=== PATIENT | female | born 1940 | race Caucasian/White ===

== ENCOUNTER 2019-09-06 12:18 | Outpatient (CLI) | payer MEDICARE, SELFPAY ==
--- NOTE | ~2019-09-06 | US_ITS ---
EXAMINATION: US venous doppler [facility] EXAM DATE: 09/06/2019 13:10 INDICATION: Left leg pain. TECHNIQUE: Multiple grayscale, color flow and Doppler images of the left lower extremity deep venous system were obtained and reviewed. Comparison is made to prior examination from 02/04/2013. FINDINGS: The left common femoral, femoral and profunda veins demonstrate normal color flow, respirat ory variation, augmentation and compressibility. Compressibility, color flow confirmed within the le ft popliteal, posterior tibial, peroneal, and greater saphenous veins. IMPRESSION: 1. No left lower extremity deep venous thrombosis. Reviewed, dictated and finalized at location B. CAR REPAIRER
== END 2019-09-06 12:19 | disposition home or self-care (01) ==
PROVIDERS: PCP Internal Medicine; Visit Provider Nurse Practitioner
DX: M79.662 Pain in left lower leg (principal)
CPT/HCPCS: 93971

== ENCOUNTER 2020-06-12 10:05 | Outpatient (NON) | payer MEDICARE, SELFPAY ==
[2020-06-12 23:36] LABS: SARS-CoV-2 RNA PCR Negative
== END 2020-06-12 10:06 ==
PROVIDERS: Visit Provider Internal Medicine
DX: R68.89 Other general symptoms and signs (principal); Z20.828 Contact with and (suspected) exposure to other viral communicable diseases
CPT/HCPCS: 87635; C9803; U0003

== ENCOUNTER 2020-06-27 12:27 | Emergency (ER) | payer MEDICARE, SELFPAY ==
--- NOTE | ~2020-06-27 | XR_ITS ---
EXAMINATION: XR chest 2V 06/27/2020 13:39 INDICATION: Tachycardia PROCEDURE: 2 view chest COMPARISON: Comparison to multiple prior studies sequentially, with oldest reviewed study dated 02/04. FINDINGS: The lungs are clear. The cardiomediastinal silhouette is within normal limits. There are no pleural effusions. There is no pneumothorax suspected. There are surgical clips in the right jyothi st wall. IMPRESSION: 1: NO ACUTE CARDIOPULMONARY DISEASE. Reviewed, dictated and finalized at location A. TIONS SPECIALIST
[2020-06-27 13:10] VITALS: BP 138/71; PULSE 89; RESP 17; TEMP 36.8; O2SAT 98
[2020-06-27 13:14] VITALS: PULSE 88
--- NOTE | 2020-06-27 13:15 | ECG_ITS ---
Measurements Intervals [place] Rate: 81 P: NC: 0 QRS: 17 QRSD: 89 T: 39 QT: 355 QTc: 412 Interpretive Statements SINUS RHYTHM ATRIAL COUPLET AND FREQUENT ATRIAL PREMATURE COMPLEXES VOLTAGE CRITERIA FOR LVH CANNOT RULE OUT SEPTAL INFARCT, AGE INDETERMINATE BASELINE ARTIFACT- I, II, III, AVL, V5 ABNORMAL ECG Electronically Signed On 06-27-2020 13:32:00 RECREATION ENGINEER by Erich Garcia D.O.
--- NOTE | 2020-06-27 13:20 | ED.GENADULT ---
HPI - General Adult General Chief complaint: Weakness Stated complaint: abnormal ekg Time Seen by Provider: 06/27/20 13:09 Source: patient, family, RN notes reviewed and old records reviewed History of Present Illness HPI narrative: 80-year-old female presents to emergency department for tachycardia after being evaluated by her primary care provider today. The nurse practitioner evaluated her today, and noticed her heart rate was around 113. Patient was sent into the emergency department for further evaluation. Patient currently asymptomatic. No chest pain or shortness of breath. No abdominal pain. No nausea or vomiting. No lightheadedness or dizziness. Related Data Home Medications Medication Instructions Recorded Confirmed hydrocodone 5 mg-acetaminophen 325 1 tablet PO Q8H PRN 05/27/19 06/27/20 mg tablet triamcinolone acetonide 55 mcg 1 spray NASAL DAILY 05/27/19 06/27/20 nasal spray aerosol pseudoephedrine HCl 60 mg tablet 60 mg PO Q4-6H PRN 09/06/19 06/27/20 Allergies Allergy/AdvReac Type Severity Reaction Status Date / Time Heparin Analogues Allergy Mild bleeding Verified 06/27/20 11:48 PROCHLORPERAZINE EDISYLATE Allergy Mild SWELLING Uncoded 06/27/20 11:48 PROCHLORPERAZINE MALEATE Allergy Mild SWELLING Uncoded 06/27/20 11:48 Review of Systems Review of Systems: Narrative: CONSTITUTIONAL: Denies fever, chills, or sweats. EYES: Denies visual changes, redness, or discharge. ENT: Denies rhinorrhea, congestion, sore throat, or otalgia. CARDIOVASCULAR: Denies chest pain, palpitations, or edema. RESPIRATORY: Denies cough or dyspnea. GASTROINTESTINAL: Denies abdominal pain, nausea, vomiting, or diarrhea. GENITOURINARY: Denies dysuria or hematuria. SKIN: Denies rash or itching. MUSCULOSKELETAL: Denies back pain, joint pain, or myalgia. NEUROLOGIC: Denies headache, numbness, dizziness, or weakness. PSYCHIATRIC: Denies anxiety or depression. All systems reviewed & are unremarkable except as noted in HPI and below (ROS) [facility] Past Medical History Medical History Colon cancer screening Fatigue Pain of left calf Social History Social History Smoking status: Never smoker Gender identity (if verbalized by the patient): Female Exam Narrative: Exam Narrative: GENERAL: Well-appearing, well-nourished, and in no acute distress. HEAD: Normocephalic, atraumatic. EYES: PERRLA and EOMI. ENT: Nares clear, no rhinorrhea or epistaxis. Mucous membranes moist. NECK: Supple. CHEST: Clear to auscultation. No respiratory distress. HEART: Regular rate and rhythm. No murmur heard. Normal peripheral pulses. ABDOMEN: Soft, nontender, nondistended, normal active bowel sounds. EXTREMITIES: Normal range of motion. No edema. SKIN: Warm, dry, no rash. NEURO: No focal deficits. Alert and oriented x3. PSYCH: Normal mood and affect. Course Reevaluation(s) Reevaluation #1: 1600 -reevaluated patient, heart rate improved after fluid administration. UA unremarkable for urinary tract infection. Counseled patient to continue having regular checkups with her family doctor. Vital Signs Vital signs: Vital Signs Temperature 36.8 C 06/27/20 13:10 Pulse Rate 89 06/27/20 13:10 Respiratory Rate 17 06/27/20 13:10 Blood Pressure 138/71 06/27/20 13:10 Pulse Oximetry 98 06/27/20 13:10 Temperature 36.8 C 06/27/20 13:10 Pulse Rate 89 06/27/20 17:02 Respiratory Rate 16 06/27/20 17:02 Blood Pressure 143/73 H 06/27/20 17:02 Pulse Oximetry 100 06/27/20 17:02 Medical Decision Making Medical Records Medical records reviewed: Yes I reviewed the patient's medical records. Vital Signs Vital Signs: Vital Signs Temperature 36.8 C 06/27/20 13:10 Pulse Rate 89 06/27/20 13:10 Respiratory Rate 17 06/27/20 13:10 Blood Pressure 138/71 06/27/20 13:10 Pulse Oximetry 98 06/27/20 13:10 Tem
--- NOTE | 2020-06-27 13:32 | PC.NURSE ---
Pt to XRAY via stretcher.
[2020-06-27 13:56] LABS: Hematocrit 32.4 % (37.0-47.0); Hemoglobin 10.4 g/dL (12.0-15.0); Mean Corpuscular HGB Conc 32.1 g/dl (32-36); Mean Corpuscular Hemoglobin 26.1 pg (26-34); Mean Corpuscular Volume 81.4 fl (80-100); Mean Platelet Volume 9.3 fl (7.4-10.4); Platelet Count Result 358 k/mm3 (150-375); Red Blood Count 3.98 M/mm3 (4.2-5.4); Red Cell Distribution Width 14.9 % (11.5-14.5); White Blood Count 13.4 K/mm3 (4.5-10.0)
[2020-06-27 14:12] LABS: Anion Gap 9 mmol/L (8-16); Blood Urea Nitrogen 23 mg/dL (7-17); Calcium 9.3 mg/dL (8.4-10.2); Carbon Dioxide 27 mmol/L (22-30); Chloride 100 mmol/L (98-107); Estimated CRCL calculation 64 ml/min; Estimated Glomerular Filt Rate > 60; Glucose 92 mg/dL (65-105); Potassium 3.7 mmol/L (3.4-5.0); Sodium 136 mmol/L (137-145)
[2020-06-27 14:17] LABS: Band Neutrophils Percent 6 % (0-6); Eosinophils Absolute Manual 0.13 K/mm3 (0.02-0.5); Eosinophils Percent Manual 1 % (0-4); Monocytes Absolute Manual 1.07 K/mm3 (0.1-0.90); Monocytes Percent Manual 8 % (3-9); Neutrophils Percent Manual 76 % (46-73); Total Cells Counted 100
[2020-06-27 14:22] LABS: Platelet Estimate Adequate (Adequate)
[2020-06-27 14:23] LABS: Hypochromasia 2+ (NORMAL)
[2020-06-27 14:56] VITALS: BP 134/77; PULSE 97; RESP 13; O2SAT 99
[2020-06-27 15:23] LABS: Add Urine Microscopic? YES; Appearance Urine Clear (Clear); Bilirubin Urine Negative (Negative); Blood Urine Negative (Negative); Color Urine Yellow (Yellow); Glucose Urine UA Negative (Negative); Ketones Urine Negative (Negative); Leukocyte Esterase Ur Negative LEU/UL (Negative); Mucus Urine Few /lpf; Nitrate Urine Negative (Negative); Protein Urine Negative (Negative); RBC Urine 0-2 /hpf (0-2); Specific Grav Ur 1.027 (1.001-1.035); Squamous Epithelial Cell Urine Few /hpf (Few); WBC Urine 0-3 /hpf
[2020-06-27] MEDS: SODIUM CHLORIDE 0.9% IV 1,000 ML 999 ML IV CONT (15:28)
[2020-06-27 17:02] VITALS: BP 143/73; PULSE 89; RESP 16; O2SAT 100
== END 2020-06-27 17:04 | disposition home or self-care (01) ==
PROVIDERS: Emergency Provider Emergency Medicine; PCP Internal Medicine
DX: E86.0 Dehydration (principal)
CPT/HCPCS: 36415; 71046; 80048; 81001; 85025; 93005; 96360; 99283; J7030

== ENCOUNTER 2020-07-10 12:05 | Inpatient (IN) | payer MEDICARE, SELFPAY ==
[2020-07-10] VITALS (32 sets, daily range): BP systolic 104–135; BP diastolic 56–78; PULSE 63–103; RESP 13–29; TEMP 36.4–36.6; O2SAT 90–100; BMI 26.0
--- NOTE | ~2020-07-10 | CT_ITS ---
EXAMINATION: CTA chest abdomen pelvis EXAM DATE: 07/10/2020 13:22 INDICATION: Back pain, feels like going to pass out. TECHNIQUE: Spiral CT of the chest, abdomen and pelvis was performed following intravenous injection o f 100 mL Omnipaque 350. Axial, coronal and sagittal images were reviewed. Coronal maximum intensity pixel images of chest reviewed. Maximum intensity projection 3-D reconstructions of the aorta were c reated by the technologist on dedicated workstation. The dose-length product (DLP) for this examina tion was 881.19 mGy-cm. The exposure was tailored according to patient size (auto mA exposure contro l), and iterative reconstruction (ASIR) was used as additional dose reduction technique. Comparison i s made to prior examination from 12/15/2016 (CT chest). FINDINGS: AORTA: Normal in caliber and without dissection. Mild scattered arterial sclerotic disease. No eviden ce of pulmonary emboli. IVC filter. CHEST: There is 3 mm left upper lobe granuloma unchanged. Some dependent groundglass opacity probably atelectasis given distribution. There are no pleural or pericardial effusions. Tracheobronchial t ree is patent. There is no mediastinal, hilar or axillary lymphadenopathy. There is no pneumothor ax. Heart normal in size. No evidence of coronary arterial calcification. ABDOMEN PELVIS: There are numerous peripherally enhancing centrally low density lesions appearance mo st consistent with metastatic disease. There is portacaval lymph node which is centrally necrotic rosendo suring 3.3 x 2.0 cm. Several other smaller periportal metastatic lesions. There is cholelithiasis. Th ere is thickening of the gallbladder fundus, could be metastatic cancer or cholangiocarcinoma. Pancre as, adrenal glands are unremarkable. Spleen normal in size. Portal and splenic veins are patent. Kidneys enhance symmetrically. There is no hydronephrosis. T he uterus is not identified and has likely been surgically resected. There is a pessary. The bladder is unremarkable. There is mild scattered arteriosclerotic disease. The appendix is normal. The stomach and small bowel are unremarkable. There is expected amount of c olonic stool. There is moderate sigmoid colonic diverticulosis. There is no adjacent inflammatory ch geeta to suggest diverticulitis. No free intraperitoneal gas. There are no osteoblastic or osteolyt ic lesions identified. IMPRESSION: 1. Numerous liver metastatic lesions. Periportal and smaller retroperitoneal metastatic lymphadenopa thy. 2. Gallbladder fundal wall thickening, cholangiocarcinoma or metastatic. 3. Sigmoid colonic diverticulosis. 4. Small hiatal hernia. 5. No acute findings. Reviewed, dictated and finalized at location B. OR VIDEOTAPE EDITOR IMPRESSION: 1. Numerous liver metastatic lesions. Periportal and smaller retroperitoneal m etastatic lymphadenopathy. 2. Gallbladder fundal wall thickening, cholangiocarcinoma or metastatic. 3. Sigmoid colonic diverticulosis. 4. Small hiatal hernia. 5. No acute findings.
--- NOTE | ~2020-07-10 | XR_ITS ---
XR chest 2V DATE: 07/10/2020 12:38 INDICATION: Dizziness TECHNIQUE: AP and lateral views COMPARISON: 06/27/2022 view chest FINDINGS: Surgical clips overlie the right axillary region and right breast. Heart size is not optimally evaluated on AP projection because of magnification. Is aortic calcificat ion and unfolding. No hilar or mediastinal mass lesion or adenopathy is suggested. There is minimal infiltrate or atelectasis at the lung bases, primarily on the left. The lungs otherw ise appear clear. No pleural effusion or pulmonary vascular congestion or pneumothorax. An IVC filter is noted. Moderate osteopenia. Osteoarthritic change at the glenohumeral joints. IMPRESSION: Minimal infiltrate or atelectasis at the lung bases, primarily on the left Reviewed, dictated and finalized at location A. TRICAL APPLIANCE MECHANIC IMPRESSION: Minimal infiltrate or atelectasis at the lung bases, primarily on t he left
--- NOTE | ~2020-07-10 | US_ITS ---
EXAMINATION: US biopsy liver DATE: 07/12/2020 11:27 INDICATION: Multiple hepatic lesions suspicious for metastatic disease. Previous breast cancer. TECHNIQUE: The procedure including the risks and benefits was discussed with the patient. Risks discu ssed included bleeding and infection. The patient understood the risks and agreed to proceed. The sk in overlying the right hepatic lobe was prepped and draped in usual sterile fashion. Anesthetic was administered with 1% lidocaine subcutaneously. An 18 gauge core biopsy needle was advanced under con tinuous ultrasound observation to the lesion of interest. 4 core biopsy specimens were obtained. The needle was removed and the entry site was cleaned and dressed. Post procedure ultrasound demonstra kevin no hemorrhage. FINDINGS: Ultrasound images demonstrate demonstrate several 1-2 cm hypoechoic nodules in the left hep atic lobe. Subsequent images demonstrate biopsy needle advanced through a couple of the lesions of co ncern. IMPRESSION: 1. Successful Ultrasound-guided biopsy of a couple 1-2 cm hypoechoic left hepatic nodules which are s uspicious for metastatic disease. Reviewed, dictated and finalized at location A. RAL OFFICE INSPECTOR IMPRESSION: 1. Successful Ultrasound-guided biopsy of a couple 1-2 cm hypoechoic left hepat ic nodules which are suspicious for metastatic disease.
--- NOTE | 2020-07-10 12:26 | ECG_ITS ---
Measurements Intervals [place] Rate: 94 P: 30 MT: 139 QRS: 6 QRSD: 92 T: 52 QT: 355 QTc: 445 Interpretive Statements SINUS RHYTHM LEFT VENTRICULAR HYPERTROPHY WITH ST-T CHANGE INFERIOR INFARCT, AGE INDETERMINATE ABNORMAL ECG Electronically Signed On 07-10-2020 13:41:31 DATA COLLECTION SPECIALIST by Erich Garcia D.O.
[2020-07-10 12:46] LABS: Basophils Absolute Auto 0.1 K/mm3 (0.0-0.1); Basophils Percent Auto 0.3 % (0.2-1.2); Eosinophils Absolute Auto 0.1 K/mm3 (0-0.3); Eosinophils Percent Auto 0.6 % (0-4.4); Hematocrit 36.9 % (37.0-47.0); Hemoglobin 11.8 g/dL (12.0-15.0); Immature Granulocyte Absolute 0.16 K/mm3 (0.00-0.031); Immature Granulocyte Percent A 0.9 % (0-0.5); Lymphocytes Absolute Auto 1.68 K/mm3 (0.9-3.2); Mean Corpuscular Volume 81.3 fl (80-100); Mean Platelet Volume 9.2 fl (7.4-10.4); Monocytes Absolute Auto 1.8 K/mm3 (0.1-0.6); Monocytes Percent Auto 9.5 % (2.6-8.5); Neutrophils Absolute Auto 14.9 K/mm3 (1.3-6.7); Neutrophils Percent Auto 79.7 % (45.5-73.1); Platelet Count Result 367 k/mm3 (150-375); Red Blood Count 4.54 M/mm3 (4.2-5.4); Red Cell Distribution Width 15.3 % (11.5-14.5); White Blood Count 18.7 K/mm3 (4.5-10.0)
[2020-07-10 12:56] LABS: INR 1.1; Prothrombin Time 14.5 Seconds (11.1-14.7)
[2020-07-10 12:57] LABS: Partial Thromboplastin Time 40.9 SECONDS (22.3-36.8)
[2020-07-10 12:58] LABS: Anion Gap 12 mmol/L (8-16); Blood Urea Nitrogen 21 mg/dL (7-17); Calcium 9.4 mg/dL (8.4-10.2); Carbon Dioxide 27 mmol/L (22-30); Chloride 95 mmol/L (98-107); Estimated CRCL calculation 51 ml/min; Estimated Glomerular Filt Rate > 60; Glucose 218 mg/dL (65-105); Potassium 3.7 mmol/L (3.4-5.0); Sodium 134 mmol/L (137-145)
[2020-07-10 13:20] LABS: Troponin I 0.064 ng/mL (0.000-0.034)
--- NOTE | 2020-07-10 14:58 | ED.BACK ---
HPI - Back Pain/Injury General Chief Complaint: Back Pain/Injury Stated Complaint: severe back pain Time Seen by Provider: 07/10/20 12:39 Source: patient and family Mode of arrival: ambulatory Limitations: no limitations History of Present Illness HPI Narrative: 80-year-old with a history of hypertension, diabetes , chronic Migraines .here with complaints of upper and lower back pain on and off for past few weeks which is progressively getting worse. Patient states the pain is sharp at times. She also complains of increased belching. No history of nausea or vomiting. She denies any fall. No previous history of back problems. She denies any abdominal pain. MD elicited complaint: back pain Onset (ago): week(s) (4) Timing: intermittent Severity: moderate Quality: sharp Location: lumbar spine and thoracic spine Radiation: none Exacerbating factors: none Relieving factors: none Associated symptoms: other (increased bleching) Related Data Home Medications Medication Instructions Recorded Confirmed hydrocodone 5 mg-acetaminophen 325 1 tablet PO Q8H PRN 05/27/19 06/27/20 mg tablet triamcinolone acetonide 55 mcg 1 spray NASAL DAILY 05/27/19 06/27/20 nasal spray aerosol pseudoephedrine HCl 60 mg tablet 60 mg PO Q4-6H PRN 09/06/19 06/27/20 Allergies Allergy/AdvReac Type Severity Reaction Status Date / Time Heparin Analogues Allergy Mild bleeding Verified 06/27/20 11:48 PROCHLORPERAZINE EDISYLATE Allergy Mild SWELLING Uncoded 06/27/20 11:48 Review of Systems Review of Systems: All systems reviewed & are unremarkable except as noted in HPI and below Constitutional: Constitutional: Reports no additional constitutional complaints Eyes: Eyes: Reports no additional eye complaints ENT: Reports system reviewed and no additional complaints, except as documented Cardiovascular: Cardiovascular: Reports no additional cardiovascular complaints Respiratory: Respiratory: Reports no additional respiratory complaints Gastrointestinal: Gastrointestinal: Reports as per HPI Musculoskeletal: Musculoskeletal: Reports no additional musculoskeletal complaints Neurologic: Reports system reviewed and no additional complaints, except as documented [facility] Past Medical History Medical History Colon cancer screening Fatigue Pain of left calf Tachycardia Social History Social History Smoking status: Never smoker Gender identity (if verbalized by the patient): Female Exam Narrative: Exam Narrative: GENERAL: Well-appearing, well-nourished, and in no acute distress. HEAD: Normocephalic, atraumatic. EYES: PERRLA and EOMI.. NECK: Supple. CHEST: Clear to auscultation. No respiratory distress. HEART: Regular rate and rhythm. No murmur heard. Normal peripheral pulses. ABDOMEN: Soft, nontender, nondistended, normal active bowel sounds. EXTREMITIES: Normal range of motion. No edema. Back No vertebral paint tenderness SKIN: Warm, dry, no rash. NEURO: No focal deficits. Alert and oriented x3. PSYCH: Normal mood and affect. Course Course Emergency Course: Inform patient about her lab work I briefly mentioned about the lesions on the liver and I did inform her that further testing has to be done. We will admit the patient to the hospital for further testing. Discussed with Whitney and Vital Signs Vital signs: Vital Signs Temperature 36.6 C 07/10/20 12:20 Pulse Rate 103 H 07/10/20 12:20 Respiratory Rate 16 07/10/20 12:20 Blood Pressure 114/62 07/10/20 12:20 Pulse Oximetry 100 07/10/20 12:20 Temperature 36.6 C 07/10/20 12:20 Pulse Rate 103 H 07/10/20 12:20 Respiratory Rate 16 07/10/20 12:20 Blood Pressure 114/62 07/10/20 12:20 Pulse Oximetry 100 07/10/20 12:20 MDM - Back Pain/Injury Differential Diagnosis Differential diagnosis: Likely lumbar radiculopathy, thoracic back pa
[2020-07-10 16:00] LABS: Troponin I 0.064 ng/mL (0.000-0.034)
[2020-07-10] MEDS: SODIUM CHLORIDE 0.9% IV 1,000 ML 75 ML IV CONT (16:41)
[2020-07-10 16:58] LABS: Glucose Point of Care 104 (65-105)
[2020-07-10] MEDS: HYDROcodone/acetaminophen (*CRX) 5-325 MG TABLET 1 TAB PO (17:56)
--- NOTE | 2020-07-10 18:30 | PM.IMHP ---
H&P: HPI History of Present Illness Date/Time: 07/10/20 18:30 Chief Complaint: Severe back pain. Narrative: Sierra Guzmán is an 80-year-old female with hypertension, diabetes, hyperlipidemia, and history of breast cancer who presented to the emergency department earlier today with complaints of severe back pain. About a week ago she developed pretty sudden onset of low back pain while doing nothing in particular. She describes a dull, constant, pressure-like pain in the sacral region without radiation. She has not noticed any significant aggravating factors. Hydrocodone and heat perhaps help somewhat. She has also had other symptoms that began around the same time including a decrease in appetite, frequent belching (no help with Gas-X or Tums), and early satiety. No change in weight that she can tell. No history of peptic ulcers. She denies abdominal bloating and distention. Bowel movements have been unremarkable although initially she thought perhaps the pain was due to constipation though laxatives and stool softeners provided no benefit. For some reason a troponin level was drawn emergency department and came back slightly elevated, prompting admission. She has not had exertional chest pain or shortness of breath and denies history of coronary disease. Also of note, CT of the abdomen and pelvis was obtained showing findings concerning for metastatic disease as well as thickening of the fundus of the gallbladder concerning for possible cholangiocarcinoma. No history of malignancy. She denies fever, chills, and sweats. No chest pain, pleuritic pain, palpitations, or shortness of breath. She denies nausea, vomiting, and diarrhea. Review of Systems Review of Systems: Narrative: Twelve systems were reviewed with pertinent positives and negatives as per HPI. She has chronic migraine headaches which seem to worsen after she had her cerebral aneurysm clipped. It sounds as though she has daily headaches. Reports chronic sinus issues, which are unchanged. No exposure to COVID-19 or concerns for such. Except as documented, all other systems were reviewed and are negative. [facility] Past Medical History Medical History (Updated 07/11/20 @ 02:14 by Cherelle Main PA-C) Benign essential hypertension Cerebral aneurysm Status post clipping in 2003. Minor left-sided weakness. Gastroesophageal reflux disease Headache disorder History of deep venous thrombosis History of rectal polyps History of right breast cancer (~1997) Status post lumpectomy and radiation therapy. Iron deficiency anemia Mixed hyperlipidemia Obstructive sleep apnea Intolerant to CPAP. Overactive bladder Primary osteoarthritis of both knees Type 2 diabetes mellitus Von Willebrands disease Surgical History Surgical History (Updated 07/11/20 @ 02:14 by Cherelle Main PA-C) History of arthroplasty of left knee History of bilateral cataract extraction (~2005) History of cerebral aneurysm repair (~2003) History of hysterectomy History of lumpectomy of right breast As treatment for breast cancer. History of tonsillectomy Presence of IVC filter Family History Family History Mother Parkinson's disease Sibling Von Willebrands disease Father Heart disease Social History Social History Social History: The patient lives in [place] with her . They previously lived at [facility] and she worked part-time selling real estate. 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 Lifelong nonsmoker. No alcohol or illicit substance abuse. Smoking status: Never smoker Second hand tobacco smoke exposure: No Alcohol intake: never Substance use: never Gender identity (if verbalized by the patient): Female Spiritual care concerns: No Meds Home Medications and Allergies Home Medications Medication Instructions
[2020-07-10 19:09] LABS: Troponin I 0.069 ng/mL (0.000-0.034)
[2020-07-10 20:21] LABS: Glucose Point of Care 185 (65-105)
[2020-07-10] MEDS: FAMOTIDINE 20 MG/2 ML VIAL IV PUSH (21:27)
[2020-07-10] MEDS: MELATONIN 5 MG TABLET PO (22:54)
[2020-07-10 23:12] LABS: Hemoglobin A1C 6.5 % (<5.7)
[2020-07-10 23:15] LABS: Lactic Acid Reflex 1.3 mmol/L (0.7-2.1)
[2020-07-10 23:17] LABS: Anion Gap 7 mmol/L (8-16); Blood Urea Nitrogen 19 mg/dL (7-17); Carbon Dioxide 32 mmol/L (22-30); Chloride 97 mmol/L (98-107); Estimated CRCL calculation 58 ml/min; Estimated Glomerular Filt Rate > 60; Glucose 120 mg/dL (65-105); Potassium 3.8 mmol/L (3.4-5.0); Sodium 136 mmol/L (137-145)
[2020-07-10 23:19] LABS: Alanine Aminotransferase 19 U/L (4-35); Albumin Level 3.5 g/dL (3.5-5.1); Alkaline Phosphatase 188 U/L (38-126); Aspartate Amino Transferase 34 U/L (14-36); Bilirubin,Total 0.4 mg/dL (0.2-1.3); CRP 7.9 mg/dL (<1.0)
[2020-07-11] VITALS (16 sets, daily range): BP systolic 125–145; BP diastolic 57–88; PULSE 83–124; RESP 18–20; TEMP 36.2–36.7; O2SAT 94–100
[2020-07-11] MEDS: MORPHINE SULFATE (*CRX) 4 MG/ML INJ IV PUSH ×2 (00:50→20:13)
--- NOTE | 2020-07-11 02:15 | ECHO_ITS ---
Patient Info Name: Sierra Guzmán Age: 80 years : 1940 Gender: Female Ht: 69 in Wt: 176 lbs BSA: 1.98 m2 HR: 103 bpm BP: 139 / 64 mmHg Heart Rhythm: Sinus Rhythm Technical Quality: Fair Exam Date: 07/11/2020 9:34 AM Exam Location: [facility] Pulmonary Patient Status: Inpatient Admit Date: 07/10/2020 Staff Ordering Physician: Cherelle Main PA-C Head Turning Machine Operator: Toi Tate, FAVIO, RT Attending Provider: Kenan Welsh MD Referring Physician: Jose David SELF; Exam Type: CA echo doppler color flow Study Info Indications R94.39 - Abnormal result of other cardiovascular function study Complete two-dimensional, color flow and Doppler transthoracic echocardiogram is performed. Summary 1. Complete two-dimensional, color flow and Doppler transthoracic echocardiogram is performed. 2. Left ventricular chamber dimension is normal. 3. Left ventricular systolic function is normal, estimated at 60-65%. 4. Modest left atrial enlargement. 5. Mildly sclerotic aortic valve with no stenosis. Leaflet separation is well maintained. Left Ventricle Left ventricular chamber dimension is normal. Left ventricular systolic function is normal, estimated at 60-65%. The left ventricular diastolic function is grade I diastolic dysfunction. Right Ventricle Right ventricular chamber dimension is normal. Left Atria Left atrial chamber dimension is mildly enlarged. Right Atria Right atrial chamber dimension is normal. Aortic Valve The aortic valve is trileaflet. There is mild aortic valve sclerosis. Pulmonic Valve The pulmonic valve is normal. Mitral Valve The mitral valve has normal leaflets. Tricuspid Valve The tricuspid valve leaflets are normal. Pericardium/Pleural The pericardium appears normal. Aorta The aortic root size at the sinus of Valsalva is normal. Left Ventricular Outflow Tract Name Value Normal LVOT 2D LVOT Diameter 2.0 cm LVOT Doppler LVOT Peak Gradient 4 mmHg LVOT Mean Gradient 2 mmHg LVOT VTI 18 cm LVOT VTI/AV VTI Ratio 0.6 LVOT Stroke Volume 58 ml LVOT CO 5.7 l/min LVOT CI 2.9 l/min/m2 Mitral Valve Name Value Normal MV Doppler MV Decel Graves 417 cm/s2 MV PHT 61 ms MV Area (PHT) 3.6 cm2 4.0-5.0 MV Diastolic Function MV E Peak Velocity 88 cm/s MV A Peak Velocity 107 cm/s MV E/A 0.8 MV Decel Time 212 ms
[2020-07-11] MEDS: HYDROcodone/acetaminophen (*CRX) 5-325 MG TABLET 1 TAB PO ×3 (05:14→23:01)
[2020-07-11] MEDS: SODIUM CHLORIDE 0.9% IV 1,000 ML 75 ML IV CONT (05:14)
[2020-07-11 05:19] LABS: Basophils Absolute Auto 0.1 K/mm3 (0.0-0.1); Basophils Percent Auto 0.3 % (0.2-1.2); Eosinophils Absolute Auto 0.1 K/mm3 (0-0.3); Eosinophils Percent Auto 0.8 % (0-4.4); Hematocrit 33.1 % (37.0-47.0); Hemoglobin 10.5 g/dL (12.0-15.0); Immature Granulocyte Absolute 0.12 K/mm3 (0.00-0.031); Immature Granulocyte Percent A 0.7 % (0-0.5); Lymphocytes Absolute Auto 1.68 K/mm3 (0.9-3.2); Lymphocytes Percent Auto 10.4 % (18.3-44.2); Mean Corpuscular HGB Conc 31.7 g/dl (32-36); Mean Corpuscular Hemoglobin 25.5 pg (26-34); Mean Corpuscular Volume 80.5 fl (80-100); Mean Platelet Volume 9.4 fl (7.4-10.4); Monocytes Absolute Auto 1.6 K/mm3 (0.1-0.6); Monocytes Percent Auto 9.7 % (2.6-8.5); Neutrophils Absolute Auto 12.6 K/mm3 (1.3-6.7); Neutrophils Percent Auto 78.1 % (45.5-73.1); Platelet Count Result 310 k/mm3 (150-375); Red Blood Count 4.11 M/mm3 (4.2-5.4); Red Cell Distribution Width 15.4 % (11.5-14.5); White Blood Count 16.2 K/mm3 (4.5-10.0)
[2020-07-11 05:43] LABS: Alanine Aminotransferase 19 U/L (4-35); Albumin Level 3.6 g/dL (3.5-5.1); Alkaline Phosphatase 189 U/L (38-126); Anion Gap 8 mmol/L (8-16); Aspartate Amino Transferase 36 U/L (14-36); Bilirubin,Total 0.5 mg/dL (0.2-1.3); Blood Urea Nitrogen 18 mg/dL (7-17); Calcium 9.1 mg/dL (8.4-10.2); Carbon Dioxide 31 mmol/L (22-30); Chloride 97 mmol/L (98-107); Estimated CRCL calculation 66 ml/min; Estimated Glomerular Filt Rate > 60; Glucose 136 mg/dL (65-105); Sodium 136 mmol/L (137-145)
--- NOTE | 2020-07-11 06:00 | ECG_ITS ---
Measurements Intervals [place] Rate: 99 P: 24 SD: 147 QRS: 13 QRSD: 94 T: 39 QT: 368 QTc: 473 Interpretive Statements SINUS RHYTHM VENTRICULAR PREMATURE COMPLEX LEFT VENTRICULAR HYPERTROPHY WITH ST-T CHANGE BORDERLINE R WAVE PROGRESSION, ANTERIOR LEADS BASELINE ARTIFACT- II, III, V3-V6 BORDERLINE ECG Electronically Signed On 07-11-2020 14:22:27 WEDDING PHOTOGRAPHER by Erich Garcia D.O.
[2020-07-11 06:07] LABS: CRP 8.1 mg/dL (<1.0)
[2020-07-11] MEDS: ONDANSETRON INJ 4 MG/2 ML VIAL IV PUSH (08:08)
[2020-07-11] MEDS: hydroCHLOROthiazide 12.5 MG CAPSULE PO (08:11)
[2020-07-11] MEDS: lisinopriL 20 MG TABLET PO (08:11)
[2020-07-11] MEDS: MULTIVITAMINS /C LUTEIN (CENTRUM SILVER) TABLET *BKC 1 TAB PO (08:11)
[2020-07-11] MEDS: PANTOPRAZOLE 40 MG TABLET PO (08:11)
[2020-07-11] MEDS: FAMOTIDINE 20 MG/2 ML VIAL IV PUSH ×2 (08:11→20:14)
[2020-07-11 08:12] LABS: Glucose Point of Care 134 (65-105)
[2020-07-11 12:13] LABS: Glucose Point of Care 167 (65-105)
--- NOTE | 2020-07-11 16:48 | PC.NURSE ---
Patient informed me that she has Von Willebrand disease. Past Medical Hx is now updated to reflect changes. Radiology informed of patient's medical history related to liver biopsy scheduled for 07/12.
[2020-07-11 17:11] LABS: Glucose Point of Care 129 (65-105)
--- NOTE | 2020-07-11 17:20 | PM.IMPN ---
Progress Note: A&P Assessment and Plan (1) Back pain: Code(s): M54.9 - Dorsalgia, unspecified Status: Acute Assessment and Plan: Controlled (2) Leukocytosis: Code(s): D72.829 - Elevated white blood cell count, unspecified Status: Acute (3) Abnormal computed tomography of abdomen and pelvis: Code(s): R93.5 - Abnormal findings on diagnostic imaging of other abdominal regions, including retroperitoneum Status: Acute Assessment and Plan: DC after liver biopsy, Recent CT scan of abdomen and pelvis was performed that showed numerous liver metastatic lesions and thickening of the gallbladder fundus with possibility of cholangiocarcinoma. (4) Anemia: Code(s): D64.9 - Anemia, unspecified Status: Acute (5) Benign essential hypertension: Code(s): I10 - Essential (primary) hypertension Status: Acute (6) Type 2 diabetes mellitus: Code(s): E11.9 - Type 2 diabetes mellitus without complications Status: Acute (7) Overactive bladder: Code(s): N32.81 - Overactive bladder Status: Acute (8) Mixed hyperlipidemia: Code(s): E78.2 - Mixed hyperlipidemia Status: Acute (9) Elevated troponin I level: Code(s): R77.8 - Other specified abnormalities of plasma proteins Status: Acute Subjective Date/time seen: 07/11/20 17:20 Interval history: Pt to have liver biopsy tomorrow under Dr Fernández, pt has no back pain today. 80-year-old female with hypertension, diabetes, hyperlipidemia, and history of breast cancer who presented to the emergency department earlier today with complaints of severe back pain on admission. HIstory of right-sided breast cancer, liver biospy scheduled concepción under DR Fernández. CT shows findings concerning for metastatic disease and possible cholangiocarcinoma with thickening of the fundus of the gallbladder Review of Systems Review of Systems: All systems reviewed & are unremarkable except as noted in HPI and below Exam Narrative: Exam Narrative: General: Well-developed elderly Neck: Supple. Respiratory: Lungs are clear to auscultation bilaterally. Cardiovascular: Regular rate and rhythm with S1-S2. Gastrointestinal: Abdomen is soft and nondistended with positive bowel sounds. No organomegaly. Skin: Warm and dry. No rash or lesions on limited exam. Extremities: No cyanosis, clubbing, or edema. Radial and pedal pulses intact. Psychiatric: Pleasant and cooperative with normal mood and affect. Judgment and insight intact Objective Data Vital Signs Vital Signs: Vital Signs - 24 hr 07/10/20 18:00 07/10/20 20:00 07/10/20 22:00 Temperature 36.6 C Pulse Rate 82 77 63 Respiratory Rate 20 Blood Pressure 135/61 Pulse Oximetry 98 07/10/20 22:21 07/10/20 23:33 07/11/20 00:00 Temperature 36.6 C Pulse Rate 80 83 83 Respiratory Rate 18 Blood Pressure 131/78 Pulse Oximetry 98 07/11/20 02:00 07/11/20 04:00 07/11/20 06:00 Temperature 36.6 C Pulse Rate 83 91 88 Respiratory Rate 18 Blood Pressure 139/64 Pulse Oximetry 98 07/11/20 08:00 07/11/20 10:00 07/11/20 11:09 Temperature 36.3 C L Pulse Rate 115 H 111 H Respiratory Rate 18 Blood Pressure 145/69 H Pulse Oximetry 98 94 07/11/20 12:00 07/11/20 14:00 Temperature 36.2 C L Pulse Rate 114 H 107 H Respiratory Rate 18 Blood Pressure 125/88 Pulse Oximetry 98 Intake/Output Intake/Output: Intake & Output 07/08/20 07/09/20 07/10/20 07/11/20 23:59 23:59 23:59 23:59 Intake Total 1900 Output Total 350 425 Balance -350 1475 Meds/Results Medications: Active Medications Generic Name Dose Route Start Last Admin Trade Name Freq PRN Reason Stop Dose Admin Acetaminophen 650 mg 07/10/20 15:08 Acetaminophen 325 Mg Tablet PO Q4H PRN Mild Pain (1-3) or Fever Hydrocodone Bitart/Acetaminophen 1 tab 07/10/20 17:35 07/11/20 14:38 Hydrocodone/Acetaminophen (*Cr
--- NOTE | 2020-07-11 17:59 | PDONCCN ---
HPI - Date of Consult Date/Time: 07/11/20 17:59 Requesting Physician: Kenan Welsh MD Primary Care Provider: Benjamin Webster, DO - Consult Narrative Reason for consult: Liver mass. Narrative: Sierra Guzmán is a 80 year old female with history of right-sided breast cancer initially diagnosed in 1998 stage I disease status post lumpectomy and sentinel lymph node biopsy followed by radiation therapy and short-term tamoxifen use. She had a relapse of the disease and had another right-sided lumpectomy with sentinel lymph node biopsy done in August of 2016. Previously patient declined mastectomy. She now came into the hospital with complain of severe back pain abrupt in onset. She thinks she might have lost 5 lb weight recently. Denies any diarrhea constipation. CT scan of abdomen and pelvis was performed that showed numerous liver metastatic lesions and thickening of the gallbladder fundus with possibility of cholangiocarcinoma. . Review of Systems - Review of Systems All systems reviewed & are unremarkable except as noted in HPI and bel - Neurologic Reports system reviewed and no additional complaints, except as documented PMF Medical History: Medical History (Last Updated 07/11/20 @ 02:14 by Cherelle Main PA-C) Benign essential hypertension Cerebral aneurysm Status post clipping in 2003. Minor left-sided weakness. Gastroesophageal reflux disease Headache disorder History of deep venous thrombosis History of rectal polyps History of right breast cancer Onset Date: ~1997 Status post lumpectomy and radiation therapy. Iron deficiency anemia Mixed hyperlipidemia Obstructive sleep apnea Intolerant to CPAP. Overactive bladder Primary osteoarthritis of both knees Type 2 diabetes mellitus Von Willebrands disease Surgical History: Surgical History (Last Updated 07/11/20 @ 02:14 by Cherelle Main PA-C) History of arthroplasty of left knee History of bilateral cataract extraction Onset Date: ~2005 History of cerebral aneurysm repair Onset Date: ~2003 History of hysterectomy History of lumpectomy of right breast As treatment for breast cancer. History of tonsillectomy Presence of IVC filter Family History: Family History (Last Reviewed 07/11/20 @ 02:08 by Cherelle Main PA-C) Mother Parkinson's disease Sibling Von Willebrands disease Father Heart disease - Social History Social History: Social History (Last Reviewed 07/11/20 @ 02:08 by Cherelle Main PA-C) Gender Identity: Gender identity (if verbalized by the patient): Female Alcohol Use: Alcohol intake: never Substance Use: Substance use: never Others: Spiritual care concerns: No Smoking Status: Smoking status: Never smoker Second hand tobacco smoke exposure: No Meds Home Medications Medication Instructions Recorded Confirmed Type hydrocodone 5 mg-acetaminophen 325 1 tablet PO Q8H PRN 05/27/19 07/10/20 History mg tablet pseudoephedrine HCl 60 mg tablet 60 mg PO Q4-6H PRN 09/06/19 07/10/20 History esomeprazole magnesium 40 mg 40 mg PO DAILY #90 cap 01/19/20 07/10/20 Rx capsule,delayed release lisinopril 20 1 tablet PO DAILY #90 tablet 03/09/20 07/10/20 Rx mg-hydrochlorothiazide 12.5 mg tablet amitriptyline 12.5 mg PO HS 07/10/20 07/10/20 History melatonin 0.2 mg PO HS PRN 07/10/20 07/10/20 History metformin 500 mg PO BID 07/10/20 07/10/20 History metoprolol succinate 50 mg PO QPM 07/10/20 07/10/20 History qaogcevhszlv-bcu-wyar-FA-vit K 1 tablet PO DAILY 07/10/20 07/10/20 History [Adults Multivitamin] rosuvastatin [Crestor] 5 mg PO HS 07/10/20 07/10/20 History Allergies Allergy/AdvReac Type Severity Reaction Status Date / Time Heparin Analogues Allergy Mild bleeding Verified 07/10/20 16:57 Results - Labs CBC & Chem 7: 07/11/20 04:56 07/11/20 04:56 Labs: Short CBC 07/11/20 Range/Units 04:56 WBC 16.2
[2020-07-11] MEDS: METOPROLOL SUCCINATE EXT REL 50 MG TABCR PO (18:54)
[2020-07-11 19:48] LABS: Glucose Point of Care 142 (65-105)
[2020-07-11] MEDS: ROSUVASTATIN 5 MG TABLET PO (20:14)
[2020-07-11] MEDS: MELATONIN 5 MG TABLET PO (20:14)
[2020-07-12] VITALS (12 sets, daily range): BP systolic 106–135; BP diastolic 53–67; PULSE 76–112; RESP 18–22; TEMP 36.2–36.6; O2SAT 95–98
[2020-07-12 05:37] LABS: Hematocrit 32.8 % (37.0-47.0); Hemoglobin 10.5 g/dL (12.0-15.0); Mean Corpuscular Volume 81.2 fl (80-100); Mean Platelet Volume 9.2 fl (7.4-10.4); Platelet Count Result 234 k/mm3 (150-375); Red Blood Count 4.04 M/mm3 (4.2-5.4); Red Cell Distribution Width 15.7 % (11.5-14.5); White Blood Count 15.2 K/mm3 (4.5-10.0)
[2020-07-12 05:47] LABS: INR 1.2; Prothrombin Time 16.1 Seconds (11.1-14.7)
[2020-07-12 05:48] LABS: Partial Thromboplastin Time 38.8 SECONDS (22.3-36.8)
[2020-07-12 05:51] LABS: Anion Gap 7 mmol/L (8-16); Blood Urea Nitrogen 14 mg/dL (7-17); Calcium 9.3 mg/dL (8.4-10.2); Carbon Dioxide 30 mmol/L (22-30); Chloride 97 mmol/L (98-107); Estimated CRCL calculation 66 ml/min; Estimated Glomerular Filt Rate > 60; Glucose 136 mg/dL (65-105); Potassium 3.9 mmol/L (3.4-5.0); Sodium 134 mmol/L (137-145)
[2020-07-12] MEDS: lisinopriL 20 MG TABLET PO (08:37)
[2020-07-12] MEDS: FAMOTIDINE 20 MG/2 ML VIAL IV PUSH (08:38)
[2020-07-12] MEDS: PANTOPRAZOLE 40 MG TABLET PO (08:38)
[2020-07-12] MEDS: MULTIVITAMINS /C LUTEIN (CENTRUM SILVER) TABLET *BKC 1 TAB PO (08:38)
[2020-07-12] MEDS: hydroCHLOROthiazide 12.5 MG CAPSULE PO (08:38)
[2020-07-12] MEDS: HYDROcodone/acetaminophen (*CRX) 5-325 MG TABLET 1 TAB PO (08:40)
--- NOTE | 2020-07-12 10:43 | PC.NURSE ---
Patient to radiology for US guided liver biopsy. IV intact and saline locked.
--- NOTE | 2020-07-12 11:28 | PC.NURSE ---
Pt returned from radiology. IV intact.
[2020-07-12 12:05] LABS: Glucose Point of Care 150 (65-105)
--- NOTE | 2020-07-12 12:29 | PM.DS ---
DS: Admitting Diagnosis Admitting Diagnosis Admitting Diagnosis: Severe back pain DS: Discharge Diagnosis Discharge Diagnosis (1) Back pain: Code(s): M54.9 - Dorsalgia, unspecified Status: Acute Assessment and Plan: Controlled with pain medications (2) Leukocytosis: Code(s): D72.829 - Elevated white blood cell count, unspecified Status: Acute Assessment and Plan: Maybe related to cancer (3) Abnormal computed tomography of abdomen and pelvis: Code(s): R93.5 - Abnormal findings on diagnostic imaging of other abdominal regions, including retroperitoneum Status: Acute Assessment and Plan: DC after liver biopsy, Recent CT scan of abdomen and pelvis was performed that showed numerous liver metastatic lesions and thickening of the gallbladder fundus with possibility of cholangiocarcinoma. See by oncology while in the hospital. (4) Anemia: Code(s): D64.9 - Anemia, unspecified Status: Acute Assessment and Plan: Hb is 10 (5) Benign essential hypertension: Code(s): I10 - Essential (primary) hypertension Status: Chronic Assessment and Plan: Pt is on bp medications (6) Type 2 diabetes mellitus: Code(s): E11.9 - Type 2 diabetes mellitus without complications Status: Chronic Assessment and Plan: Pt is on medications or DM (7) Overactive bladder: Code(s): N32.81 - Overactive bladder Status: Acute Assessment and Plan: Pt is on medications (8) Mixed hyperlipidemia: Code(s): E78.2 - Mixed hyperlipidemia Status: Acute Assessment and Plan: PT is on medications (9) Elevated troponin I level: Code(s): R77.8 - Other specified abnormalities of plasma proteins Status: Acute Assessment and Plan: Mildly elevated unlikely to be ACS. DS: Summary Hospital Course Hospital Course: HOSPITAL COURSE: 80-year-old female with hypertension, diabetes, hyperlipidemia, and history of breast cancer who presented to the emergency department earlier today with complaints of severe back pain on admission. History of right-sided breast cancer, liver biospy scheduled concepción under DR Fernández. CT shows findings concerning for metastatic disease and possible cholangiocarcinoma with thickening of the fundus of the gallbladder. Pt to have liver biopsy today under Dr Fernández, pt wants to go home after procedure. Her back pain is better. Time Spent with Patient Time attestation: Total time spent providing and/or coordinating discharge services:40 minutes on day of dischrage Exam Narrative: Exam Narrative: General: Well-developed elderly Neck: Supple. Respiratory: Lungs are clear to auscultation bilaterally. Cardiovascular: Regular rate and rhythm with S1-S2. Gastrointestinal: Abdomen is soft and nondistended with positive bowel sounds. No organomegaly. Skin: Warm and dry. No rash or lesions on limited exam. Extremities: No cyanosis, clubbing, or edema. Radial and pedal pulses intact. Psychiatric: Pleasant and cooperative with normal mood and affect. Judgment and insight intact DS: Data Data Completed and Pending Labs on day of discharge: Labs from last 24 hours 07/12/20 07/12/20 07/12/20 11:52 05:29 05:29 WBC 15.2 H RBC 4.04 L Hgb 10.5 L Hct 32.8 L MCV 81.2 MCH 26.0 MCHC 32.0 RDW 15.7 H Plt Count 234 MPV 9.2 PT INR APTT Sodium 134 L Potassium 3.9 Chloride 97 L Carbon Dioxide 30 Anion Gap 7 L BUN 14 Creatinine 0.60 L Estim Creat Clear Calc 66 Estimated GFR > 60 Glucose 136 H POC Capillary Glucose 150 H Calcium 9.3 CA 15-3 Antigen 07/12/20 07/11/20 07/11/20 05:29 19:45 18:34 WBC RBC Hgb Hct MCV MCH MCHC RDW Plt Count MPV PT 16.1 H INR 1.2 APTT 38.8 H Sodium Potassium Chloride Carbon Dioxide Anion Gap
[2020-07-12] MEDS: polyethylene glycoL 3350 17 GM POWD.PACK PO (14:24)
[2020-07-17 11:06] LABS: CA 19-9 78 U/mL (<34)
[2020-07-18 12:59] LABS: CA 15-3 443 U/mL (<32)
== END 2020-07-12 16:26 | disposition home or self-care (01) | DRG 437 ==
LOC: ANHED 15:07 → ANHIMU 07-11 16:33
PROVIDERS: Internal Medicine Hematology & Oncology; Physician Assistant; Admitting Provider Internal Medicine; Emergency Provider Family Medicine; PCP Internal Medicine; Visit Provider Family Medicine
DX: C78.7 Secondary malignant neoplasm of liver and intrahepatic bile duct (principal); C80.1 Malignant (primary) neoplasm, unspecified; M54.5 Low back pain; R93.5 Abnormal findings on diagnostic imaging of other abdominal regions, including retroperitoneum; R77.8 Other specified abnormalities of plasma proteins; E11.9 Type 2 diabetes mellitus without complications; I10 Essential (primary) hypertension; E78.2 Mixed hyperlipidemia; N32.81 Overactive bladder; D72.829 Elevated white blood cell count, unspecified; K21.9 Gastro-esophageal reflux disease without esophagitis; D50.9 Iron deficiency anemia, unspecified; G47.33 Obstructive sleep apnea (adult) (pediatric); R51.9 Headache, unspecified; Z79.84 Long term (current) use of oral hypoglycemic drugs; Z79.899 Other long term (current) drug therapy; Z85.3 Personal history of malignant neoplasm of breast; Z86.718 Personal history of other venous thrombosis and embolism; Z86.79 Personal history of other diseases of the circulatory system; Z98.42 Cataract extraction status, left eye; Z98.41 Cataract extraction status, right eye; Z92.3 Personal history of irradiation
CPT/HCPCS: 36415; 47000; 71046; 71275; 74174; 76942; 80048; 80053; 80076; 83036; 83605; 84484; 85025; 85027; 85610; 85730; 86140; 86300; 86301; 87040; 88307; 88313; 88342; 93005; 93306; 99285; A9270; J2270; J2405; J7030; Q9967

== ENCOUNTER 2020-07-24 10:34 | Outpatient (CLI) | payer MEDICARE, SELFPAY ==
[2020-07-24 11:05] LABS: Hemoglobin 10.4 g/dL (12.0-15.0); Mean Corpuscular HGB Conc 30.6 g/dl (32-36); Mean Corpuscular Hemoglobin 25.6 pg (26-34); Mean Corpuscular Volume 83.7 fl (80-100); Mean Platelet Volume 9.3 fl (7.4-10.4); Platelet Count Result 202 k/mm3 (150-375); Red Blood Count 4.06 M/mm3 (4.2-5.4); Red Cell Distribution Width 16.3 % (11.5-14.5); White Blood Count 23.4 K/mm3 (4.5-10.0)
[2020-07-24 11:19] LABS: Atypical Lymphocytes Present; Band Neutrophils Percent 8 % (0-6); Lymphocytes Absolute Manual 3.04 K/mm3 (1.1-4.5); Monocytes Absolute Manual 0.46 K/mm3 (0.1-0.90); Monocytes Percent Manual 2 % (3-9); Neutrophils Absolute Manual 19.89 K/mm3 (1.7-7.2); Neutrophils Percent Manual 77 % (46-73); Platelet Estimate Adequate (Adequate); Total Cells Counted 100
[2020-07-24 12:46] LABS: Alanine Aminotransferase 28 U/L (4-35); Alkaline Phosphatase 363 U/L (38-126); Anion Gap 11 mmol/L (8-16); Aspartate Amino Transferase 55 U/L (14-36); Bilirubin,Total 0.7 mg/dL (0.2-1.3); Blood Urea Nitrogen 32 mg/dL (7-17); Calcium 9.7 mg/dL (8.4-10.2); Carbon Dioxide 30 mmol/L (22-30); Chloride 95 mmol/L (98-107); Estimated Glomerular Filt Rate 60; Glucose 118 mg/dL (65-105); Magnesium 2.2 mg/dL (1.6-2.3); Potassium 4.7 mmol/L (3.4-5.0); Sodium 136 mmol/L (137-145)
== END 2020-07-24 10:35 | disposition home or self-care (01) ==
LOC: ANHLAB 10:38
PROVIDERS: PCP Internal Medicine; Visit Provider Internal Medicine Hematology & Oncology
DX: C50.911 Malignant neoplasm of unspecified site of right female breast (principal); Z17.0 Estrogen receptor positive status [ER+]
CPT/HCPCS: 36415; 80053; 83735; 85025

== ENCOUNTER 2020-07-31 11:45 | Outpatient (CLI) | payer MEDICARE, SELFPAY ==
--- NOTE | ~2020-07-31 | PE_ITS ---
EXAMINATION: PET skull to mid thigh DATE: 07/31/2020 14:42 INDICATION: Malignant neoplasm of the upper outer quadrant of right breast. TECHNIQUE: Blood glucose level was 183 mg/dL. 10.939 mCi of 18-fluorodeoxyglucose (18-FDG) was admini stered i.v. Low dose computed tomography (CT) images were acquired from the base of the brain to the proximal thighs for attenuation correction and anatomic localization. Automated exposure control was employed. Dose-length product (DLP) was 735 mGy-cm. Positron emission tomography (PET) images were ac quired in the same distribution. COMPARISON: CT chest, abdomen, and pelvis 07/10/2020 FINDINGS: Head/neck: There are no pathologically enlarged lymph nodes. There are aneurysm clips in right cristina n fissure. There are changes of right-sided craniotomy. There are widespread foci of increased activi ty in the bone marrow. Chest: There are scattered groundglass opacities in all lobes. There are patchy airspace opacities in right upper lobe centered at the bronchopulmonary interstitium with increased activity. There are sm all pleural effusions, right worse than left. Cardiomegaly is noted. There are coronary artery calcif ications. No pericardial effusion. There is mild mediastinal lymphadenopathy, most without increased activity. There is a borderline enlarged lymph node in the superior mediastinum on the left with incr eased activity. There are scattered foci of increased activity in the bones. Abdomen/pelvis/proximal thighs: There are greater than 20 scattered masses in the liver measuring up to approximately 2.3 cm with increased activity with maximum SUV of 15.5. There are gallstones in the gallbladder, which is distended, likely secondary to fasting. Chronic gallbladder wall thickening ma y be from interstitial edema, chronic liver disease, or chronic cholecystitis. The pancreas, adrenal glands, and kidneys are normal. There is a filter in the infrarenal inferior vena cava. There are no dilated loops of bowel. There is diverticulosis of the colon without evidence of diverticulitis. Ther e is a pessary in the vagina. There is gastrohepatic, periportal, aortocaval, and left para-aortic ly mphadenopathy with increased activity. There is widespread increased activity in the bones with heter ogeneity of the bone marrow attenuation. IMPRESSION: 1. Liver masses, bone lesions, and chest and abdominal lymphadenopathy with increased activity, consi stent with metastatic disease. Reviewed, dictated and finalized at location B. TER PUMP OPERATOR IMPRESSION: 1. Liver masses, bone lesions, and chest and abdominal lymphadenopathy with inc reased activity, consistent with metastatic disease.
[2020-07-31 12:28] LABS: Glucose Point of Care 183 (65-105)
== END 2020-07-31 11:46 | disposition home or self-care (01) ==
PROVIDERS: PCP Internal Medicine; Visit Provider Internal Medicine Hematology & Oncology
DX: C50.911 Malignant neoplasm of unspecified site of right female breast (principal); Z17.0 Estrogen receptor positive status [ER+]; K76.89 Other specified diseases of liver
CPT/HCPCS: 78815; A9552

== ENCOUNTER 2020-08-01 12:40 | Inpatient (IN) | payer MEDICARE, SELFPAY ==
[2020-08-01] VITALS (39 sets, daily range): BP systolic 83–120; BP diastolic 50–83; PULSE 105–174; RESP 13–39; TEMP 36.2–36.6; O2SAT 86–99; BMI 25.9
--- NOTE | ~2020-08-01 | CT_ITS ---
EXAMINATION: CT brain wo con DATE: 08/01/2020 15:05 INDICATION: Weakness. TECHNIQUE: Computed tomography (CT) of the head was performed without intravenous contrast. The mA wa s adjusted according to patient size. Iterative reconstruction technique was employed. The dose-lengt h product was 605.33 mGy-cm. COMPARISON: Head CT 08/12/2009 FINDINGS: There are changes of right-sided craniotomy with aneurysm clips in the right sylvian fissur e. There is a large distribution of old infarct in the expected distribution of right middle cerebral artery involving right frontal, temporal, and parietal lobes, right insula, right thalamus, and righ t basal ganglia. There are scattered areas of low attenuation in the cerebral white matter. There is no intracranial hemorrhage, acute infarction, or abnormal intracranial mass lesion. There is ex vacuo dilatation of right lateral ventricle. There are likely changes of ocular lens replacement surgeries . There is mild mucosal thickening in the paranasal sinuses. The mastoid air cells are normal. IMPRESSION: 1. 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 2. Moderate nonspecific cerebral white matter disease, which likely represents chronic small vessel i schemic disease. Reviewed, dictated and finalized at location B. GEMENT MGR IMPRESSION: 1. 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 2. Moderate nonspecific cerebral white matter disease, which likely represents chronic small vessel ischemic disease.
--- NOTE | ~2020-08-01 | CT_ITS ---
EXAMINATION: CT lumbar spine wo con DATE: 08/01/2020 15:05 INDICATION: Low back pain. TECHNIQUE: Computed tomography (CT) of the lumbar spine was performed without intravenous contrast. A utomated exposure control and iterative reconstruction technique were employed. The dose-length produ ct was 964.90 mGy-cm. COMPARISON: PET/CT 07/31/2020 FINDINGS: There is a filter in the infrarenal inferior vena cava. Ill-defined liver masses are noted, consistent metastatic disease. There is a 12 mm mass in the left adrenal gland measuring soft tissue attenuation without increased activity on the prior PET, consistent with adenoma. There is aortocava l, left para-aortic, and periportal lymphadenopathy, consistent with metastatic disease. There is 7 d egrees dextrocurvature of lumbar spine. There is 3 mm anterolisthesis of L4 on L5. There is a mixed p attern of lytic and sclerotic lesions involving all bones with increased activity on the prior PET, c onsistent with metastatic disease. The following disc levels are specifically discussed: L1-L2: The disc does not extend beyond the endplate margin. There is mild bilateral facet joint osteo arthritis. There is no neural foraminal stenosis. There is no central canal stenosis. L2-L3: The disc is bulging. There is severe right and moderate left facet joint osteoarthritis. There is mild bilateral neural foraminal stenosis. There is mild central canal stenosis. L3-L4: The disc is bulging. There is severe right and moderate left facet joint osteoarthritis. There is mild bilateral neural foraminal stenosis. There is mild central canal stenosis. L4-L5: The disc is bulging. There is severe bilateral facet joint osteoarthritis. There is mild bilat eral neural foraminal stenosis. There is mild central canal stenosis. L5-S1: The disc is bulging. There is severe bilateral facet joint osteoarthritis. There is mild bilat eral neural foraminal stenosis. There is mild central canal stenosis. IMPRESSION: 1. Abdominal lymphadenopathy, liver masses, and widespread bone lesions, consistent with metastatic d isease. No fracture. 2. Mild lumbar spondylosis. Reviewed, dictated and finalized at location B. T HEALTH MANAGER IMPRESSION: 1. Abdominal lymphadenopathy, liver masses, and widespread bone lesions, consis tent with metastatic disease. No fracture. 2. Mild lumbar spondylosis.
--- NOTE | ~2020-08-01 | US_ITS ---
EXAMINATION: US venous doppler LE EXAM DATE: 08/02/2020 11:06 INDICATION: History of DVT. Leg edema. TECHNIQUE: Multiple grayscale, color flow and Doppler images of the lower extremity deep venous syste ms bilaterally were obtained and reviewed. Comparison is made to prior examination from 09/06/2019. FINDINGS: Right side: There is extensive DVT within right lower extremity deep venous system. Left side: The left profunda vein is patent. Otherwise extensive left lower extremity DVT. IMPRESSION: Extensive bilateral lower extremity DVT. I discussed DVT with IMU nurse Mallory at 08/02/2020 11:14 LOSS PREVENTION OFFICER. Reviewed, dictated and finalized at location A. PREVENTION OFFICER
--- NOTE | ~2020-08-01 | XR_ITS ---
EXAMINATION: XR chest 1V portable DATE: 08/01/2020 13:50 INDICATION: Back pain. TECHNIQUE: A single frontal view of the chest was obtained. COMPARISON: Chest 2 views 07/10/2020, PET/CT 07/31/2020 FINDINGS: There are mild airspace opacities in the mid and lower lung zones. No pleural effusion or p neumothorax. The heart size is normal. There are surgical clips in right breast and axilla. IMPRESSION: 1. Mild airspace opacities in the mid and lower lung zones, consistent with pneumonia versus pulmonar y edema. Reviewed, dictated and finalized at location B. N SERVICES INSTRUCTOR IMPRESSION: 1. Mild airspace opacities in the mid and lower lung zones, consistent with pne umonia versus pulmonary edema.
--- NOTE | 2020-08-01 13:19 | ECG_ITS ---
Measurements Intervals [place] Rate: 157 P: [place]: 0 QRS: 155 QRSD: 98 T: 207 QT: 286 QTc: 463 Interpretive Statements ATRIAL FIBRILLATION WITH RAPID VENTRICULAR RESPONSE LIMB LEAD REVERSAL BORDERLINE T WAVE ABNORMALITY- LATERAL LEADS ABNORMAL ECG Electronically Signed On 08-01-2020 14:09:37 WHALE FISHERMAN by Erich Garcia D.O.
--- NOTE | 2020-08-01 13:30 | ED.GENADULT ---
HPI - General Adult General Chief complaint: Weakness Stated complaint: LETHARGY Time Seen by Provider: 08/01/20 12:48 Source: patient Mode of arrival: ambulatory Limitations: no limitations History of Present Illness HPI narrative: This patient is an 80 year old female with history of breast cancer, atrial fibrillation, DVT who presents for evaluation of low back pain and weakness. This patient was admitted to [facility] weeks for evaluation of low back pain and weakness. During that admission, she was found to have findings of metastatic disease. She has come to ER because she is having progression of her weakness. Her states patient is unable to move in bed or stand. She reports low back pain that has continued. She has been taking 2 hydrocodone every 7 hours with minimal improvement in pain. She also reports poor appetite and she is not eating or drinking. She has not taken her medication for the past couple of days. Related Data Home Medications Medication Instructions Recorded Confirmed hydrocodone 5 mg-acetaminophen 325 1 tablet PO Q8H PRN 05/27/19 07/10/20 mg tablet Adults Multivitamin 1 tablet PO DAILY 07/10/20 07/10/20 metformin 500 mg PO BID 07/10/20 07/10/20 metoprolol succinate 50 mg PO QPM 07/10/20 07/10/20 rosuvastatin [Crestor] 5 mg PO HS 07/10/20 07/10/20 Allergies Allergy/AdvReac Type Severity Reaction Status Date / Time Heparin Analogues Allergy Mild bleeding Verified 08/01/20 12:57 prochlorperazine Allergy Anaphylaxis Verified 08/01/20 12:57 [From Compazine] Review of Systems Review of Systems: All systems reviewed & are unremarkable except as noted in HPI and below Constitutional: Constitutional: Reports fatigue and Reports weakness Cardiovascular: Cardiovascular: Denies chest pain Respiratory: Respiratory: Denies cough and Denies dyspnea Musculoskeletal: Musculoskeletal: Reports back pain Neurologic: Reports headache(s), Reports numbness and Reports weakness [facility] Past Medical History Medical History (Updated 08/02/20 @ 00:33 by Delia Avila MD) Benign essential hypertension Cerebral aneurysm Status post clipping in 2003. Minor left-sided weakness. Gastroesophageal reflux disease Headache disorder History of deep venous thrombosis History of rectal polyps History of right breast cancer (~1997) Status post lumpectomy and radiation therapy. Iron deficiency anemia Mixed hyperlipidemia Obstructive sleep apnea Intolerant to CPAP. Overactive bladder Primary osteoarthritis of both knees Type 2 diabetes mellitus Von Willebrands disease Surgical History Surgical History (Updated 07/11/20 @ 18:07 by Jose Juan Fernández MD) History of arthroplasty of left knee History of bilateral cataract extraction (~2005) History of cerebral aneurysm repair (~2003) History of hysterectomy History of lumpectomy of right breast As treatment for breast cancer. History of tonsillectomy Presence of IVC filter Family History Family History Mother Parkinson's disease Sibling Von Willebrands disease Father Heart disease Social History Social History Social History: The patient lives in [place] with her . They previously lived at 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 Lifelong nonsmoker. No alcohol or illicit substance abuse. Smoking status: Never smoker Second hand tobacco smoke exposure: No Alcohol intake: never Substance use: never Substance use type: painkillers Gender identity (if verbalized by the patient): Female Spiritual care concerns: No Exam Const: General: alert and ill appearing Orientation/consciousness: patient oriented x3 Resp: Effort & Inspection: normal respiratory effort and no use of accessory muscles
[2020-08-01] MEDS: HYDROmorphone HCL INJ (*CRX) 1 MG/ML SYR IV PUSH (13:40)
[2020-08-01] MEDS: ONDANSETRON INJ 4 MG/2 ML VIAL IV PUSH (13:40)
[2020-08-01] MEDS: dilTIAZem HCl INJ 25 MG/5 ML VIAL 10 MG IV PUSH (13:56)
[2020-08-01] MEDS: SODIUM CHLORIDE 0.9% IV 1,000 ML 999 ML IV CONT (13:57)
[2020-08-01 14:21] LABS: Add Urine Microscopic? YES; Amorphous Sediment Urine Few; Appearance Urine Clear (Clear); Bacteria Urine Trace /hpf; Bilirubin Urine Negative (Negative); Blood Urine Negative (Negative); Color Urine Yellow (Yellow); Glucose Urine UA Negative (Negative); Ketones Urine Negative (Negative); Leukocyte Esterase Ur Negative LEU/UL (Negative); Mucus Urine Rare /lpf; Nitrate Urine Negative (Negative); Protein Urine 1+ mg/dL (Negative); RBC Urine 0-2 /hpf (0-2); Squamous Epithelial Cell Urine Rare /hpf (Few); WBC Urine 0-3 /hpf
[2020-08-01 14:50] LABS: Basophils Absolute Auto 0.1 K/mm3 (0.0-0.1); Basophils Percent Auto 0.3 % (0.2-1.2); Eosinophils Percent Auto 0.1 % (0-4.4); Hematocrit 29.7 % (37.0-47.0); Hemoglobin 9.2 g/dL (12.0-15.0); Immature Granulocyte Absolute 0.45 K/mm3 (0.00-0.031); Immature Platelet Fraction Pct 4.5 % (0.9-11.2); Lymphocytes Absolute Auto 1.43 K/mm3 (0.9-3.2); Lymphocytes Percent Auto 6.3 % (18.3-44.2); Mean Corpuscular Hemoglobin 26.1 pg (26-34); Mean Corpuscular Volume 84.1 fl (80-100); Mean Platelet Volume 10.5 fl (7.4-10.4); Monocytes Absolute Auto 1.7 K/mm3 (0.1-0.6); Monocytes Percent Auto 7.5 % (2.6-8.5); Neutrophils Percent Auto 83.8 % (45.5-73.1); Nucleated Red Blood Cells Absolute Auto 0.2 K/mm3 (0.0-0.012); Nucleated Red Blood Cells Perc 0.8 % (0.0-0.2); Platelet Count Result 190 k/mm3 (150-375); Red Blood Count 3.53 M/mm3 (4.2-5.4); Red Cell Distribution Width 17.3 % (11.5-14.5); White Blood Count 22.7 K/mm3 (4.5-10.0)
[2020-08-01 15:02] LABS: Lactic Acid Reflex 2.6 mmol/L (0.7-2.1)
[2020-08-01 15:03] LABS: Alanine Aminotransferase 30 U/L (4-35); Albumin Level 3.4 g/dL (3.5-5.1); Alkaline Phosphatase 399 U/L (38-126); Anion Gap 10 mmol/L (8-16); Aspartate Amino Transferase 71 U/L (14-36); Bilirubin,Total 1.3 mg/dL (0.2-1.3); Blood Urea Nitrogen 39 mg/dL (7-17); Carbon Dioxide 26 mmol/L (22-30); Chloride 100 mmol/L (98-107); Estimated CRCL calculation 44 ml/min; Estimated Glomerular Filt Rate 60; Glucose 148 mg/dL (65-105); Lipase 22 U/L (23-300); Magnesium 2.3 mg/dL (1.6-2.3); Potassium 4.1 mmol/L (3.4-5.0); Sodium 136 mmol/L (137-145)
--- NOTE | 2020-08-01 15:05 | PC.NURSE ---
Pt taken to CT at this time
[2020-08-01 15:09] LABS: INR 1.3; Prothrombin Time 17.1 Seconds (11.1-14.7)
[2020-08-01 15:10] LABS: Partial Thromboplastin Time 36.4 SECONDS (22.3-36.8)
[2020-08-01 15:12] LABS: NT Pro B Type Natriuretic Pept 17500 PG/ML (5-100)
[2020-08-01 15:18] LABS: Anisocytosis 1+ (NORMAL); Ovalocytes 1+ (NORMAL); Platelet Estimate Adequate (Adequate)
[2020-08-01] MEDS: METOPROLOL TARTRATE INJ 5 MG/5 ML VIAL IV PUSH ×2 (15:19→20:37)
--- NOTE | 2020-08-01 15:37 | PC.NURSE ---
CAITLIN from Dr. Avila to stop Diltizem
[2020-08-01] MEDS: DIGOXIN INJ 250 MCG/ML 2 ML AMP (*BKC) IV PUSH (17:18)
[2020-08-01] MEDS: ENOXAPARIN 80 MG/0.8 ML SYRINGE SUB-Q (17:18)
[2020-08-01] MEDS: HYDROmorphone HCL INJ (*CRX) 1 MG/ML SYR 0.5 MG IV PUSH (17:23)
[2020-08-01 17:46] LABS: Reflex Lactic Acid Yes or No Add Lactic
[2020-08-01 18:42] LABS: Lactic Acid 3.1 mmol/L (0.7-2.1)
--- NOTE | 2020-08-01 19:45 | PC.NURSE ---
Preparing to admit, but no bed available at present time. Pt updated. Pt moved to boarding status.
[2020-08-01] MEDS: HYDROcodone/acetaminophen (*CRX) 10-325 MG TABLET 1 TAB PO (20:34)
[2020-08-01] MEDS: METOPROLOL TARTRATE 50 MG TAB 25 MG PO (20:36)
--- NOTE | 2020-08-01 22:23 | PC.NURSE ---
Report to Ember in IMU. States the bed is not clean as of yet. Took report and states will call when the bed is available.
--- NOTE | 2020-08-01 23:08 | ECG_ITS ---
Measurements Intervals [place] Rate: 106 P: [place]: 0 QRS: 45 QRSD: 93 T: 33 QT: 329 QTc: 438 Interpretive Statements ATRIAL FIBRILLATION WITH RAPID VENTRICULAR RESPONSE CANNOT RULE OUT SEPTAL INFARCT, AGE INDETERMINATE INFERIOR INFARCT, AGE INDETERMINATE BORDERLINE ST ABNORMALITY- ANT/HIGH LAT LEADS BASELINE WANDER- V3 ABNORMAL ECG Electronically Signed On 08-02-2020 13:08:23 BAR EXAMINER by Erich Garcia D.O.
[2020-08-01] MEDS: FAMOTIDINE 20 MG/2 ML VIAL (23:37)
[2020-08-01] MEDS: HYDROcodone/acetaminophen (*CRX) 5-325 MG TABLET 1 TAB PO (23:38)
[2020-08-02] VITALS (21 sets, daily range): BP systolic 94–126; BP diastolic 50–69; PULSE 54–121; RESP 18–24; TEMP 35.9–36.6; O2SAT 92–100; BMI 26.0
--- NOTE | 2020-08-02 00:28 | PM.IMHP ---
H&P: HPI History of Present Illness Date/Time: 08/01/20 2300 Chief Complaint: Weakness Narrative: Sierra Guzmán is a 80 year old female who has a history of right-sided breast cancer that was diagnosed in 1998 as stage I disease status post lumpectomy and sentinel lymph node biopsy and radiation followed by short term tamoxifen treatment. She had a relapse of the disease in 2017 were she had a right-sided lumpectomy and with sentinel lymph node biopsy. She previously declined to have a mastectomy. Previously the patient declined mastectomy. The patient had a CT scan performed June of 2020 were it was read as numerous liver metastatic lesions and thickening of the gallbladder fundus with possibility of cholangiocarcinoma. The patient is seen by Dr. waddell. The patient had a PET scan on 07/31/2020 that red liver masses, bone lesions, and chest and abdominal lymphadenopathy with increased activity, consistent with metastatic disease. Patient is a DNR. Pain and weakness today. The patient was admitted to [facility] 3 weeks ago for evaluation lower back pain and weakness during that stay she was found to have metastatic disease. The patient is now on able to moving better stand. She has been taking 2 hydrocodone every 7 hours with minimal improvement in pain. She has poor appetite is not eating or drinking. Today shows abdominal lymphadenopathy liver masses and widespread bone lesions consistent with metastatic disease no fracture mild lumbar spondylosis. Of old infarction only expected distribution the right middle cerebral artery. Moderate nonspecific white matter disease which likely represents chronic small vessel ischemic disease. On 07/01/2020 with complete 2 dimensional color-flow patient's EF was noted to be 60-65%. 22.7. H&H is 9.2 and 29.7. Patient's lactic was 2.6 and then 3.1. Patient's troponin 11.400 and repeat was 10.500. BNP 07160 with RVR. Cardiology has been call. The patient was given IV push Cardizem and then a drip of Cardizem as well as IV Lopressor. She was started on Rocephin and azithromycin. She is also given Lovenox x1. And given digoxin. Cardiology has been consulted. Recommendations were made to the ED physician. I did discuss with the patient the findings of the PET scan and her CT scan. I also explained that she has had a non STEMI. The patient is a DNR. We talked about comfort measures and I also discussed what hospice is all about comfort care and pain management. Down to 109 she was saturating in the upper 90s and blood pressure was soft at 97/50 she was placed on 4 L per nasal cannula. She is admitted to inpatient on the date of service of 08/01/2020 we were not able to start heparin drip as the patient has Von Willebrand's disease. She was given a 1 time dose of subcu Lovenox though. Review of Systems Constitutional: Constitutional: Reports as per HPI and Reports no additional constitutional complaints Eyes: Eyes: Reports as per HPI and Reports no additional eye complaints ENT: Reports system reviewed and no additional complaints, except as documented and Reports Normal hearing present Cardiovascular: Cardiovascular: Reports no additional cardiovascular complaints Respiratory: Respiratory: Reports as per HPI and Reports no additional respiratory complaints Gastrointestinal: Gastrointestinal: Reports as per HPI and Reports no additional gastrointestinal complaints Genitourinary: Genitourinary: Reports no additional female genitourinary complaints Musculoskeletal: Musculoskeletal: Reports no additional musculoskeletal complaints Integumentary/Breasts: Skin/Breast: Reports system reviewed and no additional complaints, except as docu Neurologic: Reports system reviewed and no additional complaints, except as documented and Reports Normal hearing present Psychiatric: Psychiatric: Reports no additional psychiatric complaints and Reports as per HPI Hematologic/Lymphatic: Hematologic/Lymph
[2020-08-02] MEDS: DIGOXIN INJ 250 MCG/ML 2 ML AMP (*BKC) IV PUSH ×2 (04:09→10:20)
[2020-08-02] MEDS: HYDROcodone/acetaminophen (*CRX) 5-325 MG TABLET 1 TAB PO ×4 (04:39→21:28)
[2020-08-02 04:45] LABS: Hematocrit 28.9 % (37.0-47.0); Hemoglobin 8.9 g/dL (12.0-15.0); Mean Corpuscular HGB Conc 30.8 g/dl (32-36); Mean Corpuscular Hemoglobin 25.8 pg (26-34); Mean Corpuscular Volume 83.8 fl (80-100); Platelet Count Result 171 k/mm3 (150-375); Red Blood Count 3.45 M/mm3 (4.2-5.4); Red Cell Distribution Width 17.3 % (11.5-14.5); White Blood Count 21.1 K/mm3 (4.5-10.0)
[2020-08-02 04:54] LABS: Hemoglobin A1C 6.6 % (<5.7)
[2020-08-02 04:56] LABS: Lactic Acid Reflex 1.8 mmol/L (0.7-2.1)
[2020-08-02 05:12] LABS: Alanine Aminotransferase 45 U/L (4-35); Albumin Level 3.2 g/dL (3.5-5.1); Alkaline Phosphatase 368 U/L (38-126); Anion Gap 7 mmol/L (8-16); Aspartate Amino Transferase 104 U/L (14-36); Bilirubin,Total 0.8 mg/dL (0.2-1.3); Blood Urea Nitrogen 36 mg/dL (7-17); Calcium 8.9 mg/dL (8.4-10.2); Carbon Dioxide 28 mmol/L (22-30); Chloride 103 mmol/L (98-107); Estimated CRCL calculation 46 ml/min; Estimated Glomerular Filt Rate 60; Glucose 138 mg/dL (65-105); Magnesium 2.4 mg/dL (1.6-2.3); Potassium 4.2 mmol/L (3.4-5.0); Sodium 138 mmol/L (137-145)
[2020-08-02 05:30] LABS: CRP 25.1 mg/dL (<1.0)
[2020-08-02 05:40] LABS: D Dimer > 20.00 ug/mL (<0.48)
--- NOTE | 2020-08-02 06:00 | ECHO_ITS ---
Patient Info Name: Sierra Guzmán Age: 80 years : 1940 Gender: Female Ht: 69 in Wt: 175 lbs BSA: 1.98 m2 HR: 111 bpm BP: 115 / 69 mmHg Heart Rhythm: Atrial Fibrillation Technical Quality: Good Exam Date: 08/02/2020 9:22 AM Exam Location: [facility] Patient Status: Inpatient Admit Date: 08/01/2020 Staff Ordering Physician: Delia Avila MD Map Drafter: Toi Tate, ARYANCS, RT Attending Provider: Toya Andrade MD Referring Physician: Margarita MARTINEZ; Exam Type: CA echo doppler color flow Study Info Indications - nstemi I50.9 - Heart failure, unspecified Complete two-dimensional, color flow and Doppler transthoracic echocardiogram is performed. Summary 1. Complete two-dimensional, color flow and Doppler transthoracic echocardiogram is performed. 2. There is normal left ventricular size. Septal hypertrophy is present at 1.7 cm thick with no evidence of outflow tract obstruction. There was severe left ventricular dysfunction present with an estimated ejection fraction of 30-35% and measured EF of 36%. There was akinesis of the basal and mid inferior wall and septum, as well as the mid posterolateral and distal inferior rea. Diastolic function is indeterminate. 3. Left atrial chamber dimension is moderately enlarged. 4. There is moderate mitral valve regurgitation. PISA was 0.4 cm. 5. There is moderate tricuspid valve regurgitation. 6. Mild pulmonary hypertension, estimated pulmonary arterial systolic pressure is 44 mmHg. 7. Atrial fibrillation. Left Ventricle Left ventricular chamber dimension is normal. Left ventricular systolic function is severely reduced, estimated at 30-35%. There is no increased left ventricular wall thickness. Left ventricular septal wall motion is normal. The left ventricular diastolic function is indeterminate. Right Ventricle Right ventricular chamber dimension is normal. Right ventricular systolic function is normal. Left Atria Left atrial chamber dimension is moderately enlarged. Right Atria Right atrial chamber dimension is normal. Aortic Valve The aortic valve is trileaflet. There is mild aortic valve sclerosis. There is no aortic valve stenosis. There is no aortic valve regurgitation. Pulmonic Valve The pulmonic valve is normal. There is no pulmonic valve stenosis. There is no pulmonic regurgitation. Mitral Valve The mitral valve has calcified annulus. There is no mitral valve stenosis. There is moderate mitral valve regurgitation. PISA was 0.4 cm. Tricuspid Valve The tricuspid valve leaflets are normal. There is no significant tricuspid valve stenosis. There is moderate tricuspid valve regurgitation. Mild pulmonary hypertension, estimated pulmonary arterial systolic pressure is 44 mmHg. Pericardium/Pleural The pericardium appears normal. There is no pericardial effusion. Inferior Vena Cava Normal inferior vena cava with >50% collapse upon inspiration consistent with Empty right atrial pressure, 10 mmHg. Aorta The aortic root size at the sinus of Valsalva is normal. The prox ascending aorta size is normal. Left Ventricular Outflow Tract Name Value Normal LVOT 2D LVOT Diameter 2.0 cm
[2020-08-02 06:25] LABS: Band Neutrophils Percent 7 % (0-6); Lymphocytes Absolute Manual 2.32 K/mm3 (1.1-4.5); Metamyelocytes Percent 1 %; Monocytes Absolute Manual 0.21 K/mm3 (0.1-0.90); Monocytes Percent Manual 1 % (3-9); Neutrophils Absolute Manual 18.35 K/mm3 (1.7-7.2); Neutrophils Percent Manual 80 % (46-73); Nucleated Red Blood Cells 2 %; Total Cells Counted 100
[2020-08-02 06:26] LABS: Anisocytosis 1+ (NORMAL); Macrocytosis 1+ (NORMAL); Ovalocytes 1+ (NORMAL); Platelet Estimate Adequate (Adequate)
--- NOTE | 2020-08-02 09:09 | PM.CNCAR ---
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 -patient had atrial fibrillation with rapid ventricular response occurring in the setting of leukocytosis with possible pneumonia, acute extensive bilateral lower extremity DVT (with possible pulmonary embolism, awaiting CTA of the chest), and non ST elevation myocardial infarction. She reportedly has a history of atrial fibrillation, although she is a difficult historian. -she is a poor candidate for anticoagulation in setting of her von Willebrand's disease and current anemia. -she reports that she was taking 2 Excedrin (which each contain aspirin 250 mg) daily as an outpatient for pain and will continue aspirin 81 mg daily in the setting of her atrial fibrillation and non ST elevation myocardial infarction, with careful monitoring of hemoglobin. -improve rate control with intravenous digoxin and with resumption of metoprolol, with dose of metoprolol succinate increased from 50 mg daily to 50 mg b.i.d. -Obtain digoxin level following IV and oral load, especially given current use of azithromycin. -TSH, potassium, and magnesium normal this admission. (2) Von Willebrands disease: Code(s): D68.0 - Von Willebrand's disease Status: Acute Assessment and Plan: -management as per Oncology/Hematology. (3) Metastatic disease: Code(s): C79.9 - Secondary malignant neoplasm of unspecified site Status: Acute Assessment and Plan: -management as per Oncology and primary service. -consideration of hospice care when patient is ready in consultation with Oncology Service. -patient is DNR. (4) Leukocytosis: Code(s): D72.829 - Elevated white blood cell count, unspecified Status: Acute Assessment and Plan: -antibiotic therapy for possible pneumonia as per primary service. (5) Non-ST elevation [place] (NSTEMI): Code(s): I21.4 - Non-ST elevation (NSTEMI) myocardial infarction Status: Acute Assessment and Plan: -patient presents with non ST elevation myocardial infarction with peak troponin I 11.4 in the setting of acute extensive bilateral lower extremity DVT, possible pulmonary embolism (CTA of the chest PE protocol pending), leukocytosis with possible pneumonia, and atrial fibrillation with rapid ventricular response, in the setting of extensive metastatic disease. -patient denies chest pain. EKG without evidence of acute injury. -await CTA of the chest PE protocol to determine if pulmonary embolism present. -she is status post IVC filter in the past after prior DVT, given that she is a poor anticoagulation candidate in the setting of her Von Willebrand's disease and prior bleeding with heparin. -as patient was on aspirin in the form of Excedrin as an outpatient, continue low-dose aspirin 81 mg daily. -not initiating intravenous heparin at present pending CTA of the chest PE protocol results given her Von Willebrand's disease with increased bleeding risk and extensive metastatic disease. -given her non ST elevation myocardial infarction, increased her rosuvastatin to 20 mg q.h.s. and will obtain fasting lipid panel. -improve rate control with increase in metoprolol. -obtain echo to evaluate cardiac structure and function, assess for wall mo
[2020-08-02] MEDS: hydroCHLOROthiazide 12.5 MG CAPSULE PO (10:26)
[2020-08-02] MEDS: lisinopriL 20 MG TABLET PO (10:26)
[2020-08-02] MEDS: PANTOPRAZOLE 40 MG TABLET PO (10:27)
[2020-08-02] MEDS: MULTIVITAMINS /C LUTEIN (CENTRUM SILVER) TABLET *BKC 1 TAB PO (10:27)
[2020-08-02] MEDS: METOPROLOL SUCCINATE EXT REL 50 MG TABCR PO ×2 (11:42→21:29)
[2020-08-02] MEDS: FAMOTIDINE 20 MG/2 ML VIAL IV PUSH ×2 (11:42→21:30)
[2020-08-02] MEDS: ASPIRIN 81 MG CHEWABLE TABLET 324 MG PO (11:55)
[2020-08-02 12:34] LABS: Glucose Point of Care 136 (65-105)
[2020-08-02 12:38] LABS: Glucose Point of Care 140 (65-105)
--- NOTE | 2020-08-02 13:36 | PCNSR ---
On 08/02/20, the student, Raegan Cade, provided care and [facility]. I have reviewed the student's documentation and agree with the findings.
--- NOTE | 2020-08-02 13:56 | PM.IMPN ---
Progress Note: A&P Assessment and Plan (1) Atrial fibrillation with rapid ventricular response: Code(s): I48.91 - Unspecified atrial fibrillation Status: Acute Assessment and Plan: EKG showing new onset AFib with RVR. The patient was given IV diltiazem and then was on a drip and that was discontinued. She was also given digoxin. Patient's blood pressure is on the soft side. The patient was resumed back on her metoprolol. She was given a dose in the emergency room. (2) Non-ST elevation [place] (NSTEMI): Code(s): I21.4 - Non-ST elevation (NSTEMI) myocardial infarction Status: Acute Assessment and Plan: The patient's troponin was 11.4 but trending down now. No chest pain. EKG showing inferior Q waves and boarderline ST-T wave changes. Continue ASA/Metoprolol. (3) Anemia: Code(s): D64.9 - Anemia, unspecified Status: Acute Assessment and Plan: Hgb 9.2 on admission. Repeat about the same at 8.9. (4) Type 2 diabetes mellitus: Code(s): E11.9 - Type 2 diabetes mellitus without complications Status: Chronic Assessment and Plan: A1c 6.6. Stop accu-Cheks. (5) Mixed hyperlipidemia: Code(s): E78.2 - Mixed hyperlipidemia Status: Acute Assessment and Plan: Continue with Crestor. (6) Metastatic disease: Code(s): C79.9 - Secondary malignant neoplasm of unspecified site Status: Acute Assessment and Plan: Spoke with by phone and patient about the above issues coupled with the metastatic cancer of unknown primary. Discussed options including hospice. All questions answered. They spoke together by phone. Spoke with later and he states that they want to proceed with hospice care. Cardiology and Oncology informed. Oncology to call as well. (7) Leukocytosis: Code(s): D72.829 - Elevated white blood cell count, unspecified Status: Acute Assessment and Plan: WBC 22.7K. The patient was started on azithromycin and Rocephin for possibility of community-acquired pneumonia. Patient's white count about the same at 21K. Patient's lactic was elevated as well and worse on repeat. (8) DVT (deep venous thrombosis): Code(s): I82.409 - Acute embolism and thrombosis of unspecified deep veins of unspecified lower extremity Status: Acute Assessment and Plan: Bilateral extensive DVT related to her cancer. She has filter in place. Plan is for hospice so anticoagulation not started Subjective Date/time seen: 08/02/20 13:56 Interval history: Date of service 08/02 80yo female with metastatic cancer here for SOB and found to have elevated Trop and AFib/RVR Still feels SOB. Also with back pain but no chest pain. Feels weak. Spoke with by phone and he states she can barely roll in bed. Patietn eating poorly. Exam Narrative: Exam Narrative: AF 96.9 124/50 113 20 95% 4L Gen - mild conversational dyspnea Chest - L>R inspiratory rhonchi bibasilar, nml RR CV - irregualr, tachycardic Abd - Soft, ND, +BS Ext - trace pedal edema, 2+ DP bilaterally Neuro - Alert and orientedx4. has difficulty siting up or rolling in bed Psych - pleasant and cooperative Skin - Warm and dry Objective Data Vital Signs Vital Signs: Vital Signs - 24 hr 08/01/20 15:19 08/01/20 15:22 08/01/20 15:34 Temperature Pulse Rate 142 H 127 H 116 H Respiratory Rate 17 18 Blood Pressure 83/56 L 96/68 L Pulse Oximetry 97 97 08/01/20 15:36 08/01/20 15:46 08/01/20 16:20 Temperature Pulse Rate 123 H 126 H 126 H Respiratory Rate 26 H 18 Blood Pressure 96/68 L 101/63 95/72 L Pulse Oximetry 97 97 08/01/20 17:13 08/01/20 17:16 08/01/20 17:18 Temperature Pulse Rate 132 H 133 H 144 H Respiratory Rate 21 H 30 H Blood Pressure 96/79 L 100/71 Pulse Oximetry 97 98 08/01/20 17:31 08/01/20 17:46 08/01/20 18:01 Temperature Pulse Rate 139
[2020-08-02] MEDS: DIGOXIN TAB 125 MCG TABLET PO (14:49)
[2020-08-02 16:46] LABS: Glucose Point of Care 178 (65-105)
--- NOTE | 2020-08-02 17:05 | PC.NURSE ---
1355: RN entered patient's room and she was covered in blood and confused. Patient had pulled out her IV. RN called about 1415 to obtain consent for a CTA of chest w/ contrast. informed RN after talking to doctor he wanted patient to go home with hospice and therefore didn't want further testing done at this time. RN cancelled the CTA of chest and informed production posting clerk.
--- NOTE | 2020-08-02 17:32 | PDONCCN ---
HPI - Date of Consult Date/Time: 08/02/20 17:32 Requesting Physician: Toya Andrade MD Primary Care Provider: Benjamin Webster DO Family Provider: Ha Tafoya DO - Consult Narrative Reason for consult: Metastatic carcinoma of unknown primary Narrative: Sierra Guzmán is a 80 year old female with history of right-sided breast cancer initially diagnosed as stage I disease in 1998 and then subsequent relapse of the breast cancer in 2017 had right-sided lumpectomy. Patient now had ultrasound-guided liver biopsy done on July 12, 2020 that showed metastatic adenocarcinoma. She had PET scan done that showed multiple masses in the liver with bone metastasis and mediastinal lymphadenopathy. She came into the hospital with generalized weakness poor appetite and weight loss. Her blood does showed elevated lactic acid of 3.1 with hemoglobin of 9.2. BNP was elevated. Her troponin was also elevated. She was diagnosed with non STEMI. Patient did not receive any anticoagulation therapy due to history of von Willebrand's disease. She denies any bleeding at this time. Review of Systems - Review of Systems All systems reviewed & are unremarkable except as noted in HPI and bel - Neurologic Reports system reviewed and no additional complaints, except as documented, Reports hearing normal, Reports headache(s), Reports numbness, Reports weakness PMFSH Medical History: Medical History (Last Reviewed 08/02/20 @ 13:16 by Grupo Macdonald MD) Benign essential hypertension Cerebral aneurysm Status post clipping in 2003. Minor left-sided weakness. Gastroesophageal reflux disease Headache disorder History of deep venous thrombosis History of rectal polyps History of right breast cancer Onset Date: ~1997 Status post lumpectomy and radiation therapy. Iron deficiency anemia Mixed hyperlipidemia Obstructive sleep apnea Intolerant to CPAP. Overactive bladder Primary osteoarthritis of both knees Type 2 diabetes mellitus Von Willebrands disease Surgical History: Surgical History (Last Reviewed 08/02/20 @ 13:16 by Grupo Macdonald MD) History of arthroplasty of left knee History of bilateral cataract extraction Onset Date: ~2005 History of cerebral aneurysm repair Onset Date: ~2003 History of hysterectomy History of lumpectomy of right breast As treatment for breast cancer. History of tonsillectomy Presence of IVC filter Family History: Family History (Last Reviewed 08/02/20 @ 13:16 by Grupo Macdonald MD) Mother Parkinson's disease Sibling Von Willebrands disease Father Heart disease - Social History Social History: Social History (Last Reviewed 08/02/20 @ 13:16 by Grupo Macdonald MD) Gender Identity: Gender identity (if verbalized by the patient): Female Alcohol Use: Alcohol intake: never Substance Use: Substance use: never Substance use type: painkillers Others: Spiritual care concerns: No Smoking Status: Smoking status: Never smoker Second hand tobacco smoke exposure: No Meds Home Medications Medication Instructions Recorded Confirmed Type hydrocodone 5 mg-acetaminophen 325 2 tablet PO Q8H PRN 05/27/19 08/02/20 History mg tablet esomeprazole magnesium 40 mg 40 mg PO DAILY #90 cap 01/19/20 08/02/20 Rx capsule,delayed release Adults Multivitamin 1 tablet PO DAILY 07/10/20 08/02/20 History metformin 500 mg PO BID 07/10/20 08/02/20 History metoprolol succinate 50 mg PO QPM 07/10/20 08/02/20 History rosuvastatin [Crestor] 5 mg PO HS 07/10/20 08/02/20 History melatonin 5 mg PO HS #30 tablet 07/12/20 08/02/20 Rx polyethylene glycol 3350 [Miralax] 17 g PO QAM PRN #30 packet 07/12/20 08/02/20 Rx Allergies Allergy/AdvReac Type Severity Reaction Status Date / Time Heparin Analogues Allergy Mild bleeding Verified 08/01/20 12:57 prochlorperazine Allergy Anaphylaxis Verified 08/01/20 12:57 [From Compazine] Results
[2020-08-02] MEDS: MELATONIN 5 MG TABLET PO (21:29)
[2020-08-02] MEDS: ROSUVASTATIN 10 MG TABLET 20 MG PO (21:30)
[2020-08-03] VITALS (10 sets, daily range): BP systolic 121–157; BP diastolic 65–83; PULSE 97–117; RESP 18–22; TEMP 36.4; O2SAT 95–100
[2020-08-03] MEDS: HYDROmorphone HCL INJ (*CRX) 1 MG/ML SYR 0.5 MG IV PUSH ×2 (00:57→10:15)
[2020-08-03] MEDS: HYDROcodone/acetaminophen (*CRX) 5-325 MG TABLET 1 TAB PO (06:31)
[2020-08-03] MEDS: hydroCHLOROthiazide 12.5 MG CAPSULE PO (10:02)
[2020-08-03] MEDS: lisinopriL 20 MG TABLET PO (10:02)
[2020-08-03] MEDS: DIGOXIN TAB 125 MCG TABLET PO (10:02)
[2020-08-03] MEDS: FAMOTIDINE 20 MG/2 ML VIAL IV PUSH (10:02)
[2020-08-03] MEDS: ASPIRIN 81 MG ENTERIC TABLET PO (10:02)
[2020-08-03] MEDS: PANTOPRAZOLE 40 MG TABLET PO (10:03)
[2020-08-03] MEDS: METOPROLOL SUCCINATE EXT REL 50 MG TABCR PO (10:03)
[2020-08-03] MEDS: MULTIVITAMINS /C LUTEIN (CENTRUM SILVER) TABLET *BKC 1 TAB PO (10:03)
--- NOTE | 2020-08-03 13:45 | PM.DS ---
DS: Admitting Diagnosis Admitting Diagnosis Admitting Diagnosis: weakness DS: Discharge Diagnosis Discharge Diagnosis (1) Atrial fibrillation with rapid ventricular response: Code(s): I48.91 - Unspecified atrial fibrillation Status: Acute Assessment and Plan: EKG showing new onset AFib with RVR. The patient was given IV diltiazem and then was on a drip and that was discontinued. She was also given digoxin. Patient's blood pressure was on the soft side. The patient was resumed back on her metoprolol. Heart rate stable now. (2) Non-ST elevation [place] (NSTEMI): Code(s): I21.4 - Non-ST elevation (NSTEMI) myocardial infarction Status: Acute Assessment and Plan: The patient's troponin was 11.4 but trending down now. No chest pain. EKG showing inferior Q waves and boarderline ST-T wave changes. We continued ASA/Metoprolol. Cardiology did see the patient but plan for hospice made so no further evaluation needed. (3) Anemia: Code(s): D64.9 - Anemia, unspecified Status: Acute Assessment and Plan: Hgb 9.2 on admission. Repeat about the same at 8.9. (4) Type 2 diabetes mellitus: Code(s): E11.9 - Type 2 diabetes mellitus without complications Status: Chronic Assessment and Plan: A1c 6.6. We stopped accu-Cheks. (5) Mixed hyperlipidemia: Code(s): E78.2 - Mixed hyperlipidemia Status: Acute Assessment and Plan: Continue with Crestor for now. (6) Metastatic disease: Code(s): C79.9 - Secondary malignant neoplasm of unspecified site Status: Acute Assessment and Plan: Spoke with (by phone) and patient about the above issues coupled with the metastatic cancer of unknown primary. Discussed options including hospice. All questions answered. They spoke together by phone. Patient and both want to proceed with hospice care. Cardiology and Oncology informed. Oncology called as well. (7) DVT (deep venous thrombosis): Code(s): I82.409 - Acute embolism and thrombosis of unspecified deep veins of unspecified lower extremity Status: Acute Assessment and Plan: Bilateral extensive DVT related to her cancer. She has filter in place. Plan is for hospice so anticoagulation not started (8) Sepsis: Code(s): A41.9 - Sepsis, unspecified organism Status: Acute Assessment and Plan: WBC 22.7K. The patient was started on azithromycin and Rocephin for possibility of community-acquired pneumonia. Patient's repeat white count about the same at 21K. Patient's lactic was elevated as well and worse on repeat. (9) Leukocytosis: Code(s): D72.829 - Elevated white blood cell count, unspecified Status: Acute Assessment and Plan: As above DS: Summary Hospital Course Reason for hospitalization: 80yo female with known metastatic cancer of unknown primary here for SOB. Hospital Course: Please see above for details hospital course. Status at Discharge Cognitive/behavioral status at discharge: Patient is clinically stable discharge Time Spent with Patient Time attestation: Total time spent providing and/or coordinating discharge services: 34 minutes Time spent: Greater than 30 minutes Exam Narrative: Exam Narrative: AF 97.5 129/67 99 18 95% 4L Gen - NARD Chest - clear anteriorly CV - irregularly irregular Abd - Soft, ND, +BS Ext - no pedal edema Skin - Warm and dry DS: Data Data Completed and Pending Labs on day of discharge: Labs from last 24 hours 08/02/20 16:17 POC Capillary Glucose 178 H Preliminary micro results at discharge 08/01/20 14:35 Blood Culture - Preliminary Blood 08/01/20 15:39 Blood Culture - Preliminary Blood Discharge Plan Discharge Attending physician on discharge: Michael Corral Consulting providers: Jose Juan Fernández ; Josias Ziegler Discharging Clinician: Patria
--- NOTE | 2020-08-03 16:41 | PC.NURSE ---
Patient was very drowsy and not alert when ambulance arrived. RN called spouse to give him an update for when patient arrives at home.
== END 2020-08-03 16:20 | disposition hospice, home (50) | DRG 871 ==
LOC: ANHED 13:50 → ANHIMU 08-02 00:06
PROVIDERS: Nurse Practitioner; Admitting Provider Internal Medicine; Emergency Provider General Practice; PCP Internal Medicine; Visit Provider Internal Medicine
DX: A41.9 Sepsis, unspecified organism (principal); J18.9 Pneumonia, unspecified organism; I21.4 Non-ST elevation (NSTEMI) myocardial infarction; C78.7 Secondary malignant neoplasm of liver and intrahepatic bile duct; C79.51 Secondary malignant neoplasm of bone; C77.1 Secondary and unspecified malignant neoplasm of intrathoracic lymph nodes; I48.20 Chronic atrial fibrillation, unspecified; D68.0 Von Willebrand disease; I82.4Z3 Acute embolism and thrombosis of unspecified deep veins of distal lower extremity, bilateral; C80.1 Malignant (primary) neoplasm, unspecified; D72.829 Elevated white blood cell count, unspecified; E78.2 Mixed hyperlipidemia; E11.9 Type 2 diabetes mellitus without complications; D64.9 Anemia, unspecified; I10 Essential (primary) hypertension; K21.9 Gastro-esophageal reflux disease without esophagitis; D50.9 Iron deficiency anemia, unspecified; G47.33 Obstructive sleep apnea (adult) (pediatric); N32.81 Overactive bladder; M17.0 Bilateral primary osteoarthritis of knee; Z96.652 Presence of left artificial knee joint; Z66 Do not resuscitate; Z85.3 Personal history of malignant neoplasm of breast; Z98.42 Cataract extraction status, left eye; Z98.41 Cataract extraction status, right eye; Z90.710 Acquired absence of both cervix and uterus
CPT/HCPCS: 36415; 51702; 70450; 71045; 72131; 78815; 80053; 81001; 83036; 83605; 83690; 83735; 83880; 84443; 84484; 85025; 85055; 85380; 85610; 85730; 86140; 87040; 93005; 93306; 93970; 96365; 96366; 96375; 99291; A9270; A9552; J0456; J0696; J1160; J1170; J1650; J2405; J7030